=== PATIENT | male | born 1970 | race African-American/Black ===

== ENCOUNTER 2019-06-04 01:10 | Inpatient (IN) | payer OTHER ==
--- NOTE | 2019-06-04 01:57 | PDOC ---
Attending Attestation - Resident Resident Name: Nika Mccartney - ED Attending Attestation I have performed the following: I have examined & evaluated the patient, The case was reviewed & discussed with the resident, I agree w/resident's findings & plan - HPI HPI: 06/04/19 04:07 see resident hpi - Physicial Exam PE: 06/04/19 04:07 see resident exam - Medical Decision Making 06/04/19 04:07 49-year-old male with admitted polysubstance abuse including cocaine prior to arrival with chest pain EKG shows J-point elevation Plan for cardiac enzymes, chest x-ray Ativan IV and observation admission for further evaluation
[2019-06-04] MEDS ORDERED: SODIUM CHLORIDE 0.9% 500 ML INFUS.BAG IV ONE (02:03)
--- NOTE | 2019-06-04 02:30 | PDOC ---
History of Present Illness - General Chief Complaint: Substance Abuse Stated Complaint: SUBSTANCE ABUSE Time Seen by Provider: 06/04/19 01:42 Past History - Past Medical History Allergies/Adverse Reactions: Allergies Allergy/AdvReac Type Severity Reaction Status Date / Time No Known Allergies Allergy Verified 06/04/19 01:35 - Psycho Social/Smoking Cessation Hx Smoking History: Unknown if ever smoked Hx Alcohol Use: Yes Drug/Substance Use Hx: Yes *Physical Exam - Vital Signs Last Vital Signs Temp Pulse Resp BP Pulse Ox 98.5 F 89 20 150/78 98 06/04/19 01:33 06/04/19 01:33 06/04/19 01:33 06/04/19 01:33 06/04/19 01:33 ED Treatment Course - LABORATORY CBC & Chemistry Diagram: 06/04/19 03:20 06/04/19 03:20 - ADDITIONAL ORDERS Additional order review: Laboratory Results 06/04/19 02:20 POC Glucometer 74 06/04/19 02:20 POC Glucometer 74 - RADIOLOGY Radiology Studies Ordered: Category Date Time Status HEAD CT WITHOUT CONTRAST [CT] Stat CT Scan 06/04/19 02:06 Ordered CHEST X-RAY PORTABLE* [RAD] Stat Radiology 06/04/19 02:03 Ordered Medical Decision Making - Medical Decision Making 06/04/19 03:01 HPI: 49yo M reported hx of polysubstance abuse, seizures on Depakote, ACS/IN, HTN, DM , 2 strokes with residual L-sided weakness, and spinal problems BIBEMS found on side of road with CP s/p cocaine, heroin, and alcohol use. Pt states he was left for by prostitute and found on side of road by ambulance. States he does a bundle (12 bags a day) of heroin snorting and shooting, a lot of cocaine daily, and drinks 2 fifths of liquor and 36 cans of beer daily. States he passed out and has passed out a bunch the past 2 days. Endorses syncope, dizziness, chest pain, chronic L-sided weakness and numbness 2/2 strokes, and hematuria. States he wants help to calm down and to detox. Denies fever, chills , headache, new numbness/tingling, new weakness, vision changes, shortness of breath, cough, palpitations, leg swelling, abdominal pain, blood in stool, diarrhea, constipation, nausea, vomiting, dysuria. States he has HIV and wants to be tested again. ROS: Constitutional: Negative for chills, fever. HENT: Negative for sore throat, rhinorrhea, congestion. Eyes: Negative for visual disturbance. Respiratory: Negative for shortness of breath, cough, and wheezing. Cardiovascular: Positive for chest pain. Negative for palpitations, and leg swelling. Gastrointestinal: Negative for abdominal pain, blood in stool, constipation, diarrhea, nausea, and vomiting. Genitourinary: Positive for hematuria. Negative for dysuria and flank pain. Musculoskeletal: Negative for myalgias, back pain, and neck pain. Skin: Negative for rash. 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: Positive for syncope, dizziness, L-sided weakness, L-sided numbness. Negative for headaches. Psychiatric/Behavioral: Positive for polysubstance abuse and agitation. PE: Gen: Alert, NAD, comfortable-appearing, unkempt, agitated HEENT: PERRL, unable to assess EOMI, MMM, NCAT. No conjunctival pallor. +b/l conjunctival injection. Sclera are non-icteric. Poor dentition. CV: Regular rate and rhythm. No murmurs, rubs, or gallops. PULM: No resp distress. CTAB, no wheezes, rales, or rhonchi. ABD: soft, NT/ND, no rebound tenderness or guarding, no CVA tenderness. BACK: No TTP of c/t/l-spine. No step-offs or deformities. MSK: No bony deformities. 2+ pulses in all extremities. NEURO: AAOx3. PERRL. No gross CN deficits-unable to assess fully due to refusal to follow commands. Strength and sensation grossly intact throughout, moving all extremities freely, but when tried to assess strength, pt will not move LUE or LLE. EXTREMITIES: No cyanosis. No clubbing. No edema. No calf tenderness. +thickened yellow toenails. PSYCH: Agitated, repeatedly asking for someone to help him. SKIN: Warm and dry. Normal capillary refill. No rashes. No jaundice. MDM: 49yo M reported hx of polysubstance abuse, seizures on Depakote, ACS/IN, HTN, DM , 2 strokes with residual L-sided weakness, and spinal problems BIBEMS found on side of road with chest pain and syncope s/p cocaine, heroin, and alcohol use. Hemodynamically stable, afebrile. CP and cocaine use concerning for ACS/IN. Also consider pulmonary etiologies - CXR. Lack of back pain, tearing nature of chest pain, pulse discrepancies in arms, or hemodynamic instability makes dissection of low concern - no further testing indicated at this time. Also consider infectious etiologies, anemia, or metabolic derangements. -EKG -CBC, CMP, Cardiac profile, Coags, Mg, Phos, Depakote level, UDS, UA/UC, HIV -CXR, CTH -1L NS -Ativan -Dispo: adm obs tele for ACS/syncope r/o Labs reviewed. Of note, CK 836, CK-MB 4.9, Alc 148.5 EKG reviewed: NSR, 77bpm, normal axis, no TWIs, J-point elevations present CXR: no acute pathology 06/04/19 05:01 Pt sleeping comfortably. 06/04/19 06:02 MBMD sent for admission 06/04/19 07:32 CTH: no evidence of acute pathology. L zygomatic arch comminuted fx without significant soft tissue swelling likely chronic in nature. Chronic right nasal bone fx. Signed out to Dr Lozada. Pending urine and admission. Discharge - Discharge Information Problems reviewed: Yes Clinical Impression/Diagnosis: Syncope and collapse, Chest pain, Heroin abuse, Alcohol abuse, Cocaine abuse Condition: Fair - Admission Yes - Follow up/Referral - Patient Discharge Instructions - Post Discharge Activity
[2019-06-04] MEDS ORDERED: LORazepam 2 MG/ML SDV VIAL ONE (03:00)
[2019-06-04 03:50] LABS: BASO % 1.5 % (0-2.0); EOS % 2.9 % (0-4.5); HEMATOCRIT 37.1 % (35.4-49); HEMOGLOBIN 12.7 GM/dL (11.7-16.9); LYMPH % 49.9 % (8-40); MCH 32.1 pg (25.7-33.7); MCHC 34.3 g/dl (32.0-35.9); MEAN CELL VOLUME 93.6 fl (80-96); MEAN PLT VOLUME 7.8 fl (7.5-11.1); MONO % 7.7 % (3.8-10.2); PLATELET COUNT 247 K/MM3 (134-434); RBC 3.96 M/mm3 (4.00-5.60); RDW 14.4 % (11.9-15.9); WHITE BLOOD COUNT 5.1 K/mm3 (4.0-10.0)
[2019-06-04 04:06] LABS: INR 1.02 (0.83-1.09)
[2019-06-04 04:19] LABS: ALBUMIN 3.5 g/dl (3.4-5.0); BILIRUBIN,TOTAL 0.4 mg/dL (0.2-1); BLOOD UREA NITROGEN 9.2 mg/dL (7-18); CALCIUM 8.2 mg/dL (8.5-10.1); CREATININE 0.7 mg/dL (0.55-1.3); MAGNESIUM 2.1 mg/dL (1.8-2.4); PHOSPHOROUS 3.7 mg/dL (2.5-4.9); POTASSIUM 3.6 mmol/L (3.5-5.1)
--- NOTE | 2019-06-04 07:36 | PDOC ---
*Physical Exam - Vital Signs Last Vital Signs Temp Pulse Resp BP Pulse Ox 98.5 F 89 20 150/78 98 06/04/19 01:33 06/04/19 01:33 06/04/19 01:33 06/04/19 01:33 06/04/19 01:33 - Physical Exam General Appearance: Yes: Nourished, Appropriately Dressed, Other (resting comfortably, asleep). No: Apparent Distress Respiratory/Chest: positive: Lungs Clear, Normal Breath Sounds. negative: Respiratory Distress Cardiovascular: positive: Regular Rhythm, Regular Rate. negative: Murmur ED Treatment Course - LABORATORY CBC & Chemistry Diagram: 06/04/19 03:20 06/04/19 03:20 - ADDITIONAL ORDERS Additional order review: Laboratory Results 06/04/19 06/04/19 06/04/19 03:23 03:20 03:20 PT with INR 12.00 INR 1.02 PTT (Actin FS) 28.0 Sodium Potassium Chloride Carbon Dioxide Anion Gap BUN Creatinine Est GFR (CKD-EPI)AfAm Est GFR (CKD-EPI)NonAf POC Glucometer Random Glucose Calcium Phosphorus Cancelled Magnesium Total Bilirubin AST ALT Alkaline Phosphatase Creatine Kinase Creatine Kinase Index CK-MB (CK-2) Troponin I Total Protein Albumin Lipase Alcohol, Quantitative 06/04/19 06/04/19 06/04/19 03:20 03:20 02:20 PT with INR INR PTT (Actin FS) Sodium 141 Potassium 3.6 Chloride 103 Carbon Dioxide 29 Anion Gap 10 BUN 9.2 Creatinine 0.7 Est GFR (CKD-EPI)AfAm 126.64 Est GFR (CKD-EPI)NonAf 109.27 POC Glucometer 74 Random Glucose 82 Calcium 8.2 L Phosphorus 3.7 Magnesium 2.1 Total Bilirubin 0.4 AST 37 ALT 37 Alkaline Phosphatase 98 Creatine Kinase 836 H Creatine Kinase Index 0.5 CK-MB (CK-2) 4.9 H Troponin I < 0.02 Total Protein 7.0 Albumin 3.5 Lipase 122 Alcohol, Quantitative 148.5 H 06/04/19 06/04/19 03:20 02:20 RBC 3.96 L MCV 93.6 MCHC 34.3 RDW 14.4 MPV 7.8 Neutrophils % 38.0 L Lymphocytes % 49.9 H Monocytes % 7.7 Eosinophils % 2.9 Basophils % 1.5 POC Glucometer 74 - Medications Given in the ED: ED Medications Discontinued Medications Generic Name Dose Route Start Last Admin Trade Name Guille PRN Reason Stop Dose Admin Lorazepam 1 mg 06/04/19 02:40 06/04/19 03:03 Ativan Injection - IVPUSH 06/04/19 02:41 1 mg ONCE ONE Administration Sodium Chloride 1,000 ml 06/04/19 02:03 06/04/19 02:58 Normal Saline - IV 06/04/19 02:04 1,000 ml ONCE ONE Administration Medical Decision Making - Medical Decision Making 06/04/19 07:32 Signed out to me by Dr. Mccartney. Here for syncope and chest pain workup, plan to be admitted for tele/obs for cardiac syncope eval. Poor historian, self-reported history of stroke. Pending CT head and urine for UA/UC/Utox. Pending callback for admission. ECG shows NSR with HR 77, qTC 463. [X] CT head [] UA/UC/Utox [X] admit tele 06/04/19 08:25 CT head shows no infarct; chronic right nasal bone fracture, left zygomatic arch comminuted fracture without soft tissue swelling, chronic in nature. Patient admitted to tele under Dr. Clarke. Patient resting comfortably in bed in no acute distress, heart/lung exam normal. Discharge - Discharge Information Problems reviewed: Yes Clinical Impression/Diagnosis: Syncope and collapse, Chest pain, Heroin abuse, Alcohol abuse, Cocaine abuse Condition: Fair - Follow up/Referral - Patient Discharge Instructions - Post Discharge Activity
--- NOTE | 2019-06-04 07:56 | PN ---
Teaching Attending Note Name of Resident: Lety Maldonado ATTENDING PHYSICIAN STATEMENT I saw and evaluated the patient. I reviewed the resident's note and discussed the case with the resident. I agree with the resident's findings and plan as documented. SUBJECTIVE: Patient is a 49 y/o male with a history of polysubstance abuse, seizures, DC ( 2016), stroke, DM, and HTN who presents for HAVING A chest pain.Patient reports he drinks every day and does drugs including heroin and cocain. He injects himself with drugs. Patient reports he has chest pain, abdominal pain, and leg pain. Patient is Noncompliant with his medications. Patient reports having seizures but has not taken his meds. OBJECTIVE: Vital Signs Temperature 98.8 F 06/04/19 07:41 Pulse Rate 88 06/04/19 07:41 Respiratory Rate 18 06/04/19 07:41 Blood Pressure 106/73 06/04/19 07:41 O2 Sat by Pulse Oximetry (%) 98 06/04/19 07:41 GENERAL: The patient is awake, alert, and fully oriented, in no acute distress. HEAD: Normal with no signs of trauma. EYES: PERRL, extraocular movements intact, sclera anicteric, conjunctiva clear. ENT: Ears normal, oropharynx clear without exudates, moist mucous membranes. NECK: Trachea midline, full range of motion, supple. LUNGS: Breath sounds equal, clear to auscultation bilaterally, no wheezes, no crackles, no accessory muscle use. HEART: Regular rate and rhythm, S1, S2 without murmur, rub or gallop. ABDOMEN: Soft, nontender, nondistended, normoactive bowel sounds, no guarding, no rebound, no hepatosplenomegaly, no masses. EXTREMITIES: 2+ pulses, warm, well-perfused, no edema. NEUROLOGICAL: Cranial nerves II through XII grossly intact. Normal speech, gait not observed. PSYCH: Normal mood, normal affect. SKIN: Warm, dry, normal turgor, no rashes or lesions noted CBCD WBC 5.1 K/mm3 (4.0-10.0) 06/04/19 03:20 RBC 3.96 M/mm3 (4.00-5.60) L 06/04/19 03:20 Hgb 12.7 GM/dL (11.7-16.9) 06/04/19 03:20 Hct 37.1 % (35.4-49) 06/04/19 03:20 MCV 93.6 fl (80-96) 06/04/19 03:20 MCHC 34.3 g/dl (32.0-35.9) 06/04/19 03:20 RDW 14.4 % (11.9-15.9) 06/04/19 03:20 Plt Count 247 K/MM3 (134-434) 06/04/19 03:20 MPV 7.8 fl (7.5-11.1) 06/04/19 03:20 CMP Sodium 141 mmol/L (136-145) 06/04/19 03:20 Potassium 3.6 mmol/L (3.5-5.1) 06/04/19 03:20 Chloride 103 mmol/L (98-107) 06/04/19 03:20 Carbon Dioxide 29 mmol/L (21-32) 06/04/19 03:20 Anion Gap 10 MMOL/L (8-16) 06/04/19 03:20 BUN 9.2 mg/dL (7-18) 06/04/19 03:20 Creatinine 0.7 mg/dL (0.55-1.3) 06/04/19 03:20 Random Glucose 82 mg/dL (74-106) 06/04/19 03:20 Calcium 8.2 mg/dL (8.5-10.1) L 06/04/19 03:20 Total Bilirubin 0.4 mg/dL (0.2-1) 06/04/19 03:20 AST 37 U/L (15-37) 06/04/19 03:20 ALT 37 U/L (13-61) 06/04/19 03:20 Alkaline Phosphatase 98 U/L (45-117) 06/04/19 03:20 Total Protein 7.0 g/dl (6.4-8.2) 06/04/19 03:20 Albumin 3.5 g/dl (3.4-5.0) 06/04/19 03:20 CARDIAC ENZYMES Creatine Kinase 836 U/L (26-308) H 06/04/19 03:20 Troponin I < 0.02 ng/ml (0.00-0.05) 06/04/19 03:20 Laboratory Tests 06/04/19 06/04/19 06/04/19 03:20 03:20 03:20 Creatine Kinase 836 H Alcohol, Quantitative 148.5 H HIV 1&2 Antibody Screen Negative HIV P24 Ant[address] Of the head: No infarct; chronic right nasal bone fracture, left zygomatic arch comminuted fracture without soft tissue swelling, chronic in nature. CXR: negative. ASSESSMENT AND PLAN: Patient is a 49 y/o male with PMHx of polysubstance abuse(heroin,cocain, IVDA , alcohol) seizures, DC ( 2016), stroke, DM, and HTN who presents for HAVING A chest pain. #Acute chest pain with hx of CAD r/o ACS: Ce q6x3 , ekg, cardio consult, lipid panel, aspirin 81mg daily. #Syncope most likely due to alcohol since level was 148 on admission #Alcohol dependency /alcohol withdrawel will start him on Librium protocol, detox consult #Polysubstance dependency detox consult. #Hx of seizure most likely due to alcohol, will restart his keppra since was not taking it at home. DVT Px: SCDs
[2019-06-04] MEDS ORDERED: chlordiazePOXIDE 5 MG CAPSULE PO PRN (08:23)
[2019-06-04] MEDS ORDERED: chlordiazePOXIDE HCL 25 MG CAPSULE PO ONE (08:24)
[2019-06-04] MEDS ORDERED: THIAMINE HCL 100 MG TABLET (FP) PO ONE (08:25)
[2019-06-04] MEDS ORDERED: FOLIC ACID 1 MG TABLET (FP) PO ONE (08:26)
[2019-06-04] MEDS ORDERED: SODIUM CHLORIDE 1,000 ML IV SCH (08:30)
[2019-06-04] MEDS ORDERED: ACETAMINOPHEN 325 MG TABLET (FP) PO PRN (08:35)
--- NOTE | 2019-06-04 08:43 | HP ---
CHIEF COMPLAINT: chest pain PCP: none HISTORY OF PRESENT ILLNESS: Patient is a 49 y/o male with a history of polysubstance abuse, seizures, LA ( most recently in 2016), stroke, DM, and HTN who presents for chest pain. Patient is very uninterested in providing a detailed history. reports he was on the ground last night and found by bystanders who left him "to ". Patient reports he drinks every day and does drugs including heroin and cocain. He injects himself with drugs. Patient reports he has chest pain, abdominal pain, and leg pain. Patient is supposed to be taking medications but has not been taking them, does not know for how long. Patient has had withdrawal seizures in the past. ER course was notable for: (1) (2) (3) Recent Travel: PAST MEDICAL HISTORY: polysubstance abuse, seizures, LA ( most recently in 2015) , stroke, DM, and HTN PAST SURGICAL HISTORY: Social History: Smoking: Alcohol: "36 beers a day, two jugs of alcohol" Drugs: heroin and cocaine Allergies No Known Allergies Allergy (Verified 06/04/19 01:35) HOME MEDICATIONS: REVIEW OF SYSTEMS refused to answer complains of : pain in chest, abdomen, and legs PHYSICAL EXAMINATION Vital Signs - 24 hr 06/04/19 06/04/19 01:33 07:41 Temperature 98.5 F 98.8 F Pulse Rate 89 Pulse Rate [ 88 Left Radial] Respiratory 20 18 Rate Blood Pressure 150/78 Blood Pressure 106/73 [Left Arm] O2 Sat by Pulse 98 98 Oximetry (%) GENERAL: Awake,and fully oriented, in no acute distress. Smells of alcohol, sleepy HEAD: Normal with no signs of trauma. EYES: extraocular movements intact, EARS, NOSE, THROAT: poor dentition LUNGS: Breath sounds equal, clear to auscultation bilaterally. No wheezes, and no crackles. No accessory muscle use. HEART: Regular rate and rhythm, normal S1 and S2 without murmur, rub or gallop. ABDOMEN: Soft, nontender, not distended, normoactive bowel sounds, no guarding, no rebound, no masses. LOWER EXTREMITIES: 2+ pulses, warm, well-perfused. No peripheral edema. NEUROLOGICAL: refused SKIN: Warm, dry, normal turgor, no rashes or lesions noted, normal capillary refill. CBC, BMP 06/04/19 03:20 06/04/19 03:20 ASSESSMENT/PLAN: Patient is a 49 y/o male with a history of polysubstance abuse, seizures, LA ( most recently in 2016), stroke, DM, and HTN who presents for chest pain and alcohol intoxication. #Chest pain - r/o ACS, per patient with history of LA's, not been taking his medication - likely 2/2 to polysubstance abuse - trop negative x1, f/u second two - EKG with slight widened QRS 88, QTC 463, slight upslope in st - monitor on tele with cardiac monitoring - f/u with Cardio - f/u ECHO #alcohol intoxication - began librium protocol - continue thiamine and folate - seizure precuations - monitor CIWA, patient initially refused to answer questions #polysubstance abuse - f/u Utox - per patient injects heroin, and uses cocaine - HIV test negative #DM - BGM - SS - f/u A1C #hx CAD - continue ASA 81 daily #hx seizures - per patient he has not been taking his depakote, will restart 500 BID - will monitor off depakote, ativan for any seizures - patient on seizure precautions #HLD - CPK elevated - once CPK trends down will start lipitor - f/u lipid #DVT ppx - heparin TID FEN - low sodium, diabetic diet - NS @ 100, f/u echo and reduce fluids if necessary Dispo: monitor on tele Visit type - Emergency Visit Emergency Visit: No - New Patient This patient is new to me today: Yes Date on this admission: 06/07/19 - Critical Care Critical Care patient: No ATTENDING PHYSICIAN STATEMENT I saw and evaluated the patient. I reviewed the resident's note and discussed the case with the resident. I agree with the resident's findings and plan as documented. SUBJECTIVE: OBJECTIVE: ASSESSMENT AND PLAN:
[2019-06-04] MEDS ORDERED: chlordiazePOXIDE HCL 25 MG CAPSULE ONE ×3 (09:11→20:30)
[2019-06-04] MEDS ORDERED: PT OWN MED DRAWER 7, Y5N ONE (09:11)
[2019-06-04 09:49] LABS: CHOLESTEROL 162 mg/dL (50-200); HDL CHOLESTEROL 80 mg/dL (40-60); LDL CHOLESTEROL (ONLY SJRH) 46 mg/dL (5-100); TRIGLYCERIDES 219 mg/dL (0-150)
[2019-06-04] MEDS: DIVALPROEX SODIUM 500 MG TABLET E.C. PO SCH ×2 (11:00→21:21)
[2019-06-04] MEDS: FOLIC ACID 1 MG TABLET (FP) PO SCH (11:00)
[2019-06-04] MEDS: ASPIRIN COATED 81 MG TABLET.EC PO SCH (11:00)
[2019-06-04] MEDS: HEPARIN NA (PORCINE) 5,000 UNITS/ML 1ML VIAL SQ SCH ×3 (11:00→21:21)
[2019-06-04] MEDS: THIAMINE HCL 100 MG TABLET (FP) PO SCH (11:00)
[2019-06-04] MEDS ORDERED: ASPIRIN COATED 81 MG TABLET.EC ONE (11:09)
[2019-06-04] MEDS ORDERED: FOLIC ACID 1 MG TABLET (FP) ONE (11:10)
[2019-06-04] MEDS ORDERED: HEPARIN NA (PORCINE) 5,000 UNITS/ML 1ML VIAL ONE ×3 (11:10→20:30)
[2019-06-04] MEDS: INSULIN SLIDING SCALE (NOVOLOG) 1 VIAL SQ SCH ×3 (11:36→21:21)
--- NOTE | 2019-06-04 12:05 | EKG ---
Test Reason : Blood Pressure : / mmHG Vent. Rate : 077 BPM Atrial Rate : 077 BPM P-R Int : 128 ms QRS Dur : 088 ms QT Int : 410 ms P-R-T Axes : 059 022 030 degrees QTc Int : 463 ms NORMAL SINUS RHYTHM NORMAL ECG NO PREVIOUS ECGS AVAILABLE Confirmed by Jose Hollingsworth ([id number]) on 06/04/2019 12:05:04 PM Referred By: Confirmed By:Jose Hollingsworth
--- NOTE | 2019-06-04 12:19 | EKG ---
Test Reason : Blood Pressure : / mmHG Vent. Rate : 089 BPM Atrial Rate : 089 BPM P-R Int : 122 ms QRS Dur : 076 ms QT Int : 376 ms P-R-T Axes : 062 030 038 degrees QTc Int : 457 ms NORMAL SINUS RHYTHM NORMAL ECG WHEN COMPARED WITH ECG OF 04-JUN-2019 02:14, NO SIGNIFICANT CHANGE WAS FOUND Confirmed by Jose Hollingsworth ([id number]) on 06/04/2019 12:19:04 PM Referred By: Confirmed By:Jose Hollingsworth
--- NOTE | 2019-06-04 12:35 | ECHO ---
Version: 1 Name: JAVI MCCOY Exam: Adult Echocardiogram Study Date: 06/04/2019, 11:48 AM Age: 49 Years MMode/2D Measurements & Calculations IVSd: 0.91 cm LVIDs: 2.41 cm LVIDd: 4.7 cm LVPWd: 0.98 cm LAV (MOD-bp): 49.2 ml LVOT diam: 1.96 cm Ao root diam: 3.0 cm LA dimension: 3.1 cm Doppler Measurements & Calculations MV E max memo: 74.2 cm/sec Med E/e': 6.2 MV A max memo: 85.4 cm/sec Med Peak E' Memo: 12.0 cm/sec MV E/A: 0.87 Lat E/e': 5.2 Lat Peak E' Memo: 14.4 cm/sec Ao max P.0 mmHg Ao V2 max: 165.6 cm/sec TR max memo: 226.2 cm/sec TR max P.7 mmHg Left Ventricle The left ventricular size, thickness and function are normal. Ejection Fraction = 65%. The transmitr al spectral Doppler flow pattern is suggestive of impaired LV relaxation. Right Ventricle The right ventricle is normal in size and function. Atria Normal left and right atrial size and function. Mitral Valve The mitral valve is normal in structure and function. There is mild mitral regurgitation. Tricuspid Valve The tricuspid valve is normal in structure and function. There is Trace to mild tricuspid regurgitat ion. Aortic Valve The aortic valve is normal in structure and function. Pulmonic Valve The pulmonic valve is normal in structure and function. Trace to mild pulmonic valvular regurgitatio n. Great Vessels The aortic root is normal size. Normal aortic arch, descending and ascending aorta. Pericardium/Pleura There is no pericardial effusion. Summary Statements The left ventricular size, thickness and function are normal Ejection Fraction = 65%. The transmitral spectral Doppler flow pattern is suggestive of impaired LV relaxation. The right ventricle is normal in size and function. Normal left and right atrial size and function. The mitral valve is normal in structure and function. There is mild mitral regurgitation. The tricuspid valve is normal in structure and function. There is Trace to mild tricuspid regurgitation. The aortic valve is normal in structure and function. The pulmonic valve is normal in structure and function. Trace to mild pulmonic valvular regurgitation. The aortic root is normal size. Normal aortic arch, descending and ascending aorta There is no pericardial effusion. Richmond Wheeler 06/04/2019, 11:34 AM Ordering Physician: SEBASTIAN VILLAFUERTE Performed By: Cristy Leonard
[2019-06-04] MEDS: chlordiazePOXIDE HCL 25 MG CAPSULE PO SCH ×2 (13:50→21:20)
--- NOTE | 2019-06-04 15:59 | CON.CARD ---
Consult Consult Specialty:: cardiology Reason for Consultation:: chest pain; cocaine/alcholol abuse - History of Present Illness Chief Complaint: Pt arousable; says he was using cocaine just prior to admission , and drinking alcohol; denies chest pain presently, but c/o "pain all over, and neurotin isn't helping"; requests "something stonger, like Percoset". History of Present Illness: 49-year-old male with admitted polysubstance abuse, ?CVA (pt says he has left- sided weakness from it; hx father who of CVA age 61); HTN, diastolic CHF, including cocaine and alcohol prior to arrival with chest pain EKG shows J-point elevation 1st TNI < 0.02; chest x-ray without acute pathology. Ativan IV and observation admission for further evaluation - History Source History Provided By: Patient, Medical Record Limitations to Obtaining History: Poor Historian - Past Medical History Cardio/Vascular: Yes: HTN Psych: Yes: Other (addictions/substance abuse) - Alcohol/Substance Use Hx Alcohol Use: Yes - Smoking History Smoking history: Unknown if ever smoked Home Medications - Allergies Allergies/Adverse Reactions: Allergies Allergy/AdvReac Type Severity Reaction Status Date / Time No Known Allergies Allergy Verified 06/04/19 01:35 - Home Medications Home Medications: Ambulatory Orders Aspirin 81 mg PO DAILY 06/04/19 Atorvastatin Ca [Lipitor] 40 mg PO DAILY 06/04/19 Baclofen 10 mg PO DAILY 06/04/19 Divalproex [Depakote -] 500 mg PO DAILY 06/04/19 Emtricitabine/Tenofovir (Tdf) [Truvada 200 mg-300 mg Tablet] 1 tab PO DAILY 04/15 Rivaroxaban [Xarelto -] 20 mg PO DAILY 06/04/19 Family Medical History Family Hx Cardiac Disorders: Father ( of CVA age 61) - Risk Factors Known Risk Factors: Yes: Age, Family History, Gender, Hypertension, Physical Inactivity, Prior LA /Emb Stroke, Race Vital Signs: Vital Signs Temperature 98.8 F 06/04/19 07:41 Pulse Rate 88 06/04/19 07:41 Respiratory Rate 18 06/04/19 07:41 Blood Pressure 106/73 06/04/19 07:41 O2 Sat by Pulse Oximetry (%) 98 06/04/19 07:41 Constitutional: Yes: Mild Distress Eyes: Yes: WNL Neck: Yes: WNL Respiratory: Yes: Regular Gastrointestinal: Yes: Soft Renal/: Yes: Anuria Heart Sounds: Yes: S1, S2, S4 Murmur: Yes: Systolic Murmur, Grade 1 Musculoskeletal: Yes: Muscle Weakness (left sided mild-moderately decreased ROM , flotation tender) Extremities: Yes: WNL Edema: No Peripheral Pulses WNL: Yes Integumentary: Yes: WNL 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: Yes: Alert, Oriented, Weakness Psychiatric: Yes: Alert, Other - Other Data Labs, Other Data: CBC, BMP 06/04/19 03:20 06/04/19 03:20 INR, PTT INR 1.02 (0.83-1.09) 06/04/19 03:23 Troponin, BNP 06/04/19 06/04/19 03:20 08:29 Troponin I < 0.02 < 0.02 Troponin, BNP 06/04/19 06/04/19 03:20 08:29 Troponin I < 0.02 < 0.02 Abnormal Lab Results 06/04/19 06/04/19 06/04/19 03:20 03:20 03:20 RBC 3.96 L Neutrophils % 38.0 L Lymphocytes % 49.9 H Calcium 8.2 L Creatine Kinase 836 H CK-MB (CK-2) 4.9 H Triglycerides HDL Cholesterol Valproic Acid Alcohol, Quantitative 148.5 H 06/04/19 06/04/19 08:29 13:50 RBC Neutrophils % Lymphocytes % Calcium Creatine Kinase CK-MB (CK-2) Triglycerides 219 H HDL Cholesterol 80 H Valproic Acid < 3.0 L Alcohol, Quantitative Echo: Report Reviewed (normal LVEF) Ejection Fraction %: LVEF > or = 40 % Imaging - Results Chest X-ray: Image Reviewed (no acute pathology) EKG: Image Reviewed (normal study) Problem List - Problems (1) HTN (hypertension) Assessment/Plan: start lisinopril (HTN; DM). Code(s): I10 - ESSENTIAL (PRIMARY) HYPERTENSION (2) Diastolic CHF Code(s): I50.30 - UNSPECIFIED DIASTOLIC (CONGESTIVE) HEART FAILURE (3) Alcohol abuse Assessment/Plan: detox protocol Code(s): F10.10 - ALCOHOL ABUSE, UNCOMPLICATED (4) Chest pain Assessment/Plan: TNI < 0.02; f/u serially. EKG: normal study. ECHO: normal LVEF. Stress test when stable. Code(s): R07.9 - CHEST PAIN, UNSPECIFIED (5) Cocaine abuse Assessment/Plan: Avoid beta blockers. Drug rehabilitation. Code(s): F14.10 - COCAINE ABUSE, UNCOMPLICATED (6) Diabetes Code(s): E11.9 - TYPE 2 DIABETES MELLITUS WITHOUT COMPLICATIONS (7) CVA (cerebral vascular accident) Assessment/Plan: Pt gives hx of CVA-->left-sided weakness; f/u w/u. Code(s): I63.9 - CEREBRAL INFARCTION, UNSPECIFIED (8) [place] cardiac risk 10-20% in next 10 years Assessment/Plan: Atypical chest pain. F/u TNI, EKG, telemetry. Consider stress test when stable. Code(s): Z91.89 - OTH PERSONAL RISK FACTORS, NOT ELSEWHERE CLASSIFIED
[2019-06-04] MEDS ORDERED: DIVALPROEX SODIUM 500 MG TABLET E.C. ONE (20:30)
[2019-06-05 01:44] VITALS: BMI 19.3
[2019-06-05] MEDS: HEPARIN NA (PORCINE) 5,000 UNITS/ML 1ML VIAL SQ SCH (05:46)
[2019-06-05] MEDS: chlordiazePOXIDE HCL 25 MG CAPSULE PO SCH (05:46)
[2019-06-05] MEDS: INSULIN SLIDING SCALE (NOVOLOG) 1 VIAL SQ SCH ×2 (06:25→14:24)
[2019-06-05 07:24] LABS: METHADONE, UR NEGATIVE ng/ml (CUTOFF=300); OPIATES, URI NEGATIVE ng/ml (CUTOFF=300); PHENCYCLIDINE,URINE NEGATIVE ng/ml (CUTOFF=25); URINE AMPHETAMINES NEGATIVE ng/ml (CUTOFF=500); URINE BARBITURATES NEGATIVE ng/ml (CUTOFF=200)
[2019-06-05 07:26] LABS: COCAINE, UR POSITIVE ng/ml (CUTOFF=300); URINE BENZODIAZEPINES POSITIVE ng/ml (CUTOFF=200)
[2019-06-05 08:00] LABS: PH,URINE 6.5 (5.0-8.0); URINE APPEARANCE CLEAR; URINE BILIRUBIN NEGATIVE (NEGATIVE); URINE COLOR YELLOW; URINE GLUCOSE (UA) NEGATIVE (NEGATIVE); URINE KETONE NEGATIVE (NEGATIVE); URINE LEUK ESTERASE NEGATIVE (NEGATIVE); URINE NITRITE NEGATIVE (NEGATIVE); URINE PROTEIN NEGATIVE (NEGATIVE); URINE UROBILINOGEN 0.2 mg/dL (0.2-1.0)
[2019-06-05] MEDS: THIAMINE HCL 100 MG TABLET (FP) PO SCH (09:35)
[2019-06-05] MEDS: ASPIRIN COATED 81 MG TABLET.EC PO SCH (09:35)
[2019-06-05] MEDS: FOLIC ACID 1 MG TABLET (FP) PO SCH (09:35)
[2019-06-05 09:56] VITALS: BP 155/91; PULSE 92; TEMP 98.3
[2019-06-05] MEDS ORDERED: LISINOPRIL 5 MG TABLET (FP) PO SCH (10:00)
[2019-06-05] MEDS: DIVALPROEX SODIUM 500 MG TABLET E.C. PO SCH (10:23)
[2019-06-05] MEDS ORDERED: PT OWN MED DRAWER 7, Y5N ONE (11:08)
--- NOTE | 2019-06-05 11:09 | PN ---
Progress Note, Physician History of Present Illness: 49-year-old male with admitted polysubstance abuse, ?CVA (pt says he has left- sided weakness from it; hx father who of CVA age 61); HTN, diastolic CHF, including cocaine and alcohol prior to arrival with chest pain EKG shows J-point elevation 1st TNI < 0.02; chest x-ray without acute pathology. Ativan IV and observation admission for further evaluation - Current Medication List Current Medications: Active Medications Acetaminophen (Tylenol -) 650 mg PO Q6H PRN PRN Reason: Fever Or Pain Aspirin (Ecotrin -) 81 mg PO DAILY [facility] Last Admin: 06/05/19 09:35 Dose: 81 mg Chlordiazepoxide HCl (Librium -) 10 mg PO Q12H PRN PRN Reason: Signs/symptoms of Withdrawal Stop: 06/07/19 23:59 Chlordiazepoxide HCl (Librium -) 10 mg PO Q8H PRN PRN Reason: Signs/symptoms of Withdrawal Stop: 06/06/19 23:59 Chlordiazepoxide HCl (Librium -) 25 mg PO Q8H [facility] Stop: 06/05/19 21:01 Last Admin: 06/05/19 05:46 Dose: 25 mg Chlordiazepoxide HCl (Librium -) 15 mg PO Q8H [facility] Stop: 06/06/19 21:01 Chlordiazepoxide HCl (Librium -) 10 mg PO Q8H [facility] Stop: 06/07/19 21:01 Chlordiazepoxide HCl (Librium -) 10 mg PO ONCE ONE Stop: 06/08/19 05:01 Divalproex Sodium (Depakote -) 500 mg PO BID [facility] Last Admin: 06/04/19 21:21 Dose: Not Given Folic Acid (Folic Acid -) 1 mg PO DAILY [facility] Last Admin: 06/05/19 09:35 Dose: 1 mg Heparin Sodium (Porcine) (Heparin -) 5,000 unit SQ TID [facility] Last Admin: 06/05/19 05:46 Dose: 5,000 unit Sodium Chloride (Normal Saline -) 1,000 mls @ 75 mls/hr IV ASDIR [facility] Last Admin: 06/04/19 09:19 Dose: 75 mls/hr Insulin Aspart (Novolog Vial Sliding Scale -) 1 vial SQ ACHS [facility]; Protocol Last Admin: 06/05/19 06:25 Dose: Not Given Lisinopril (Prinivil) 2.5 mg PO DAILY [facility] Thiamine HCl (Vitamin B1 -) 100 mg PO DAILY [facility] Last Admin: 06/05/19 09:35 Dose: 100 mg - Objective Vital Signs: Vital Signs Temperature 98.3 F 06/05/19 09:00 Pulse Rate 92 H 06/05/19 09:00 Respiratory Rate 18 06/05/19 09:00 Blood Pressure 155/91 06/05/19 09:00 O2 Sat by Pulse Oximetry (%) 99 06/05/19 09:00 Eyes: Yes: WNL, Conjunctiva Clear, EOM Intact HENT: Yes: WNL, Atraumatic, Normocephalic Neck: Yes: WNL, Supple, Trachea Midline Cardiovascular: Yes: WNL, Regular Rate and Rhythm Respiratory: Yes: WNL, Regular, CTA Bilaterally Gastrointestinal: Yes: WNL, Normal Bowel Sounds Genitourinary: Yes: WNL Musculoskeletal: Yes: WNL Extremities: Yes: WNL Edema: No Integumentary: Yes: WNL 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: Yes: WNL, Alert, Oriented ...Motor Strength: WNL Psychiatric: Yes: WNL Labs: CBC, BMP 06/04/19 03:20 06/04/19 03:20 INR, PTT INR 1.02 (0.83-1.09) 06/04/19 03:23 Assessment/Plan - Problems (1) HTN (hypertension) Assessment/Plan: start lisinopril (HTN; DM). Code(s): I10 - ESSENTIAL (PRIMARY) HYPERTENSION (2) Diastolic CHF Code(s): I50.30 - UNSPECIFIED DIASTOLIC (CONGESTIVE) HEART FAILURE (3) Alcohol abuse Assessment/Plan: detox protocol Code(s): F10.10 - ALCOHOL ABUSE, UNCOMPLICATED (4) Chest pain Assessment/Plan: TNI < 0.02; f/u serially. EKG: normal study. ECHO: normal LVEF. Stress test when stable. Code(s): R07.9 - CHEST PAIN, UNSPECIFIED (5) Cocaine abuse Assessment/Plan: Avoid beta blockers. Drug rehabilitation. Code(s): F14.10 - COCAINE ABUSE, UNCOMPLICATED (6) Diabetes Code(s): E11.9 - TYPE 2 DIABETES MELLITUS WITHOUT COMPLICATIONS (7) CVA (cerebral vascular accident) Assessment/Plan: Pt gives hx of CVA-->left-sided weakness; f/u w/u. Code(s): I63.9 - CEREBRAL INFARCTION, UNSPECIFIED (8) [place] cardiac risk 10-20% in next 10 years Assessment/Plan: Atypical chest pain. F/u TNI, EKG, telemetry. Consider stress test when stable. Code(s): Z91.89 - OTH PERSONAL RISK FACTORS, NOT ELSEWHERE CLASSIFIED
--- NOTE | 2019-06-05 16:41 | DS ---
Physical Exam: SUBJECTIVE: Patient seen and examined. Pt continues to endorse pain in chest, back and arms. However patient refusing assessment, blood draws, and fingerstick because he wants to sleep. OBJECTIVE: Vital Signs Period Temp Pulse Resp BP Sys/Maurice Pulse Ox Last 24 Hr 98.3 F-98.6 F 71-92 18-18 107-155/64-91 99-99 PHYSICAL EXAM pt refuses physical exam. LABS Laboratory Results - last 24 hr 06/04/19 06/04/19 06/05/19 17:22 21:16 06:00 POC Glucometer 97 89 Urine Color Urine Appearance Urine pH Ur Specific Jean Urine Protein Urine Glucose (UA) Urine Ketones Urine Blood Urine Nitrite Urine Bilirubin Urine Urobilinogen Ur Leukocyte Esterase Opiates Screen Negative Methadone Screen Negative Barbiturate Screen Negative Phencyclidine Screen Negative Ur Amphetamines Screen Negative MDMA (Ecstasy) Screen Negative Benzodiazepines Screen Positive A* Cocaine Screen Positive A* U Marijuana (THC) Screen Negative 06/05/19 06:00 POC Glucometer Urine Color Yellow Urine Appearance Clear Urine pH 6.5 Ur Specific Jean 1.013 Urine Protein Negative Urine Glucose (UA) Negative Urine Ketones Negative Urine Blood Negative Urine Nitrite Negative Urine Bilirubin Negative Urine Urobilinogen 0.2 Ur Leukocyte Esterase Negative Opiates Screen Methadone Screen Barbiturate Screen Phencyclidine Screen Ur Amphetamines Screen MDMA (Ecstasy) Screen Benzodiazepines Screen Cocaine Screen U Marijuana (THC) Screen HOSPITAL COURSE: Date of Admission:06/04/19 Patient is a 49 y/o male with a history of polysubstance abuse, seizures, [place] ( most recently in 2016), stroke, DM, and HTN who presents for chest pain and alcohol intoxication. Pt was admitted to r/o ACS. trops neg x2, EKG with slight widened QRS 88, QTC 463, slight upslope in some leads. echo only significant for impaired LV relaxation with EF 65%. Per cardio, pt to follow o/p for stress test. Head CT and Chest XRay negative for acute pathology. Pt was actively withdrawing and agreed to get D/C to [facility] to continue inpatient detox. Depakote 500 BID restarted as pt has history seizure disorder and stopped taking his meds a long time ago. pt advised to avoid BBs due to cocain use Hx. Date of Discharge: 06/05/19 Minutes to complete discharge: 35 Discharge Summary Problems reviewed: Yes Reason For Visit: SYNCOPE AND COLLAPSE,CHEST PAIN Condition: Fair - Instructions Diet, Activity, Other Instructions: You came in for chest pain. We pilar blood labs were negative, we did an ekg which was also negative. We did an ultrasound of your heard which showed nothing immediately concerning. We found you in withdrawal and we started you on medications to treat you. We are transferring you to [facility] where you can complete detox. Please follow up with Cardiology Dr Dalal for a stress test. Medications: Please continue all your medications as previously prescribes Please stop using cocaine, heroin and alcohol as they can worsen your heart function. Please return to the ED if you begin to experience worsening chest pain, shortness of breath, bleeding, or any other concerning symptoms/ Referrals: Andres Dalal MD [Staff Physician] - 1 Week Sherry Gonzalez DO [Staff Physician] - 1 Week Disposition: [facility] - Home Medications Comprehensive Discharge Medication List: Ambulatory Orders Aspirin 81 mg PO DAILY 06/04/19 Atorvastatin Ca [Lipitor] 40 mg PO DAILY 06/04/19 Baclofen 10 mg PO DAILY 06/04/19 Divalproex [Depakote -] 500 mg PO DAILY 06/04/19 Emtricitabine/Tenofovir (Tdf) [Truvada 200 mg-300 mg Tablet] 1 tab PO DAILY 04/15 Rivaroxaban [Xarelto -] 20 mg PO DAILY 06/04/19 Problem List - Problems (1) Alcohol abuse Code(s): F10.10 - ALCOHOL ABUSE, UNCOMPLICATED (2) CVA (cerebral vascular accident) Code(s): I63.9 - CEREBRAL INFARCTION, UNSPECIFIED (3) Chest pain Code(s): R07.9 - CHEST PAIN, UNSPECIFIED (4) Cocaine abuse Code(s): F14.10 - COCAINE ABUSE, UNCOMPLICATED (5) Diabetes Code(s): E11.9 - TYPE 2 DIABETES MELLITUS WITHOUT COMPLICATIONS (6) Diastolic CHF Code(s): I50.30 - UNSPECIFIED DIASTOLIC (CONGESTIVE) HEART FAILURE (7) [place] cardiac risk 10-20% in next 10 years Code(s): Z91.89 - OTH PERSONAL RISK FACTORS, NOT ELSEWHERE CLASSIFIED (8) HTN (hypertension) Code(s): I10 - ESSENTIAL (PRIMARY) HYPERTENSION (9) Heroin abuse Code(s): F11.10 - OPIOID ABUSE, UNCOMPLICATED (10) Syncope and collapse Code(s): R55 - SYNCOPE AND COLLAPSE This patient is new to me today: Yes Date on this admission: 06/05/19 Emergency Visit: Yes ED Registration Date: 06/04/19 Care time: The patient presented to the Emergency Department on the above date and was hospitalized for further evaluation of their emergent condition. Critical Care patient: No - Discharge Referral Referred to [facility] Med P.C.: No ATTENDING PHYSICIAN STATEMENT I saw and evaluated the patient. I reviewed the resident's note and discussed the case with the resident. I agree with the resident's findings and plan as documented. SUBJECTIVE: OBJECTIVE: ASSESSMENT AND PLAN:
--- NOTE | 2019-06-05 16:44 | PN ---
Teaching Attending Note Name of Resident: Hayley Sharpe ATTENDING PHYSICIAN STATEMENT I saw and evaluated the patient. I reviewed the resident's note and discussed the case with the resident. I agree with the resident's findings and plan as documented. SUBJECTIVE: Patient was sleeping deeply when we entered his room, no new complaint. Denies having any chest pain or palpitations. OBJECTIVE: Vital Signs Temperature 98.3 F 06/05/19 09:00 Pulse Rate 92 H 06/05/19 09:00 Respiratory Rate 18 06/05/19 09:00 Blood Pressure 155/91 06/05/19 09:00 O2 Sat by Pulse Oximetry (%) 99 06/05/19 09:00 GENERAL: The patient is awake, alert, and fully oriented, in no acute distress. HEAD: Normal with no signs of trauma. EYES: PERRL, extraocular movements intact, sclera anicteric, conjunctiva clear. ENT: Ears normal, oropharynx clear without exudates, moist mucous membranes. NECK: Trachea midline, full range of motion, supple. LUNGS: Breath sounds equal, clear to auscultation bilaterally, no wheezes, no crackles, no accessory muscle use. HEART: Regular rate and rhythm, S1, S2 without murmur, rub or gallop. ABDOMEN: Soft, nontender, nondistended, normoactive bowel sounds, no guarding, no rebound, no hepatosplenomegaly, no masses. EXTREMITIES: 2+ pulses, warm, well-perfused, no edema. NEUROLOGICAL: Cranial nerves II through XII grossly intact. Normal speech, gait not observed. PSYCH: Normal mood, normal affect. SKIN: Warm, dry, normal turgor, no rashes or lesions noted CBCD WBC 5.1 K/mm3 (4.0-10.0) 06/04/19 03:20 RBC 3.96 M/mm3 (4.00-5.60) L 06/04/19 03:20 Hgb 12.7 GM/dL (11.7-16.9) 06/04/19 03:20 Hct 37.1 % (35.4-49) 06/04/19 03:20 MCV 93.6 fl (80-96) 06/04/19 03:20 MCHC 34.3 g/dl (32.0-35.9) 06/04/19 03:20 RDW 14.4 % (11.9-15.9) 06/04/19 03:20 Plt Count 247 K/MM3 (134-434) 06/04/19 03:20 MPV 7.8 fl (7.5-11.1) 06/04/19 03:20 CMP Sodium 141 mmol/L (136-145) 06/04/19 03:20 Potassium 3.6 mmol/L (3.5-5.1) 06/04/19 03:20 Chloride 103 mmol/L (98-107) 06/04/19 03:20 Carbon Dioxide 29 mmol/L (21-32) 06/04/19 03:20 Anion Gap 10 MMOL/L (8-16) 06/04/19 03:20 BUN 9.2 mg/dL (7-18) 06/04/19 03:20 Creatinine 0.7 mg/dL (0.55-1.3) 06/04/19 03:20 Random Glucose 82 mg/dL (74-106) 06/04/19 03:20 Calcium 8.2 mg/dL (8.5-10.1) L 06/04/19 03:20 Total Bilirubin 0.4 mg/dL (0.2-1) 06/04/19 03:20 AST 37 U/L (15-37) 06/04/19 03:20 ALT 37 U/L (13-61) 06/04/19 03:20 Alkaline Phosphatase 98 U/L (45-117) 06/04/19 03:20 Total Protein 7.0 g/dl (6.4-8.2) 06/04/19 03:20 Albumin 3.5 g/dl (3.4-5.0) 06/04/19 03:20 CARDIAC ENZYMES Creatine Kinase 836 U/L (26-308) H 06/04/19 03:20 Troponin I < 0.02 ng/ml (0.00-0.05) 06/04/19 08:29 Home Medications Medication Instructions Recorded Aspirin 81 mg PO DAILY 06/04/19 Atorvastatin Ca [Lipitor] 40 mg PO DAILY 06/04/19 Baclofen 10 mg PO DAILY 06/04/19 Divalproex [Depakote -] 500 mg PO DAILY 06/04/19 Emtricitabine/Tenofovir (Tdf) 1 tab PO DAILY 06/04/19 [Truvada 200 mg-300 mg Tablet] Rivaroxaban [Xarelto -] 20 mg PO DAILY 06/04/19 Laboratory Tests 06/04/19 06/04/19 06/04/19 03:20 03:20 03:20 Creatine Kinase 836 H Troponin I < 0.02 Triglycerides Cholesterol Total LDL Cholesterol HDL Cholesterol Alcohol, Quantitative 148.5 H HIV 1&2 Antibody Screen Negative HIV P24 Antigen Negative 06/04/19 08:29 Creatine Kinase Troponin I < 0.02 Triglycerides 219 H Cholesterol 162 Total LDL Cholesterol 46 HDL Cholesterol 80 H Alcohol, Quantitative HIV 1&2 Antibody Screen HIV P24 [address] Of the head: No infarct; chronic right nasal bone fracture, left zygomatic arch comminuted fracture without soft tissue swelling, chronic in nature. CXR: negative. ASSESSMENT AND PLAN: Patient is a 49 y/o male with PMHx of polysubstance abuse (heroin,cocain, IVDA , alcohol) seizures, [place] ( 2016), stroke, DM, and HTN who presents for HAVING A chest pain. #Acute chest pain improved with negative troponins x 2 sets . normal ekg, will discharge the patient back to detox at [facility]. cardiology follow up upon discharge and stress test as an outpatient with dr shah. #Syncope most likely due to alcohol since level was 148 on admission #Alcohol dependency /alcohol withdrawel continue Librium protocol in the detox center. #Polysubstance dependency continue detox #Hx of seizure most likely due to alcohol, will restart his keppra since was not taking it at home. discharge the patient back to rehab.
[2019-06-06] MEDS ORDERED: chlordiazePOXIDE 5 MG CAPSULE PO SCH (05:00)
[2019-06-07] MEDS ORDERED: chlordiazePOXIDE 5 MG CAPSULE PO PRN
[2019-06-07] MEDS ORDERED: chlordiazePOXIDE 5 MG CAPSULE PO SCH (05:00)
[2019-06-08] MEDS ORDERED: chlordiazePOXIDE 5 MG CAPSULE PO ONE (05:00)
== END 2019-06-05 12:20 | DRG 773 ==
LOC: JER 01:10 → JERBED 06:12 → J4W 06-05 01:29
PROVIDERS: ADMIT Internal Medicine; ATTEND Internal Medicine
PROC: HZ2ZZZZ Detoxification Services for Substance Abuse Treatment (ICD-10-PCS; principal; 2019-06-04)
DX: F10.239 Alcohol dependence with withdrawal, unspecified (principal); R07.89 Other chest pain; R55 Syncope and collapse; F14.10 Cocaine abuse, uncomplicated; Y90.6 Blood alcohol level of 120-199 mg/100 ml; F11.20 Opioid dependence, uncomplicated; E78.5 Hyperlipidemia, unspecified; F10.229 Alcohol dependence with intoxication, unspecified; E11.9 Type 2 diabetes mellitus without complications; G40.909 Epilepsy, unspecified, not intractable, without status epilepticus; I11.0 Hypertensive heart disease with heart failure; I25.2 Old myocardial infarction; G81.94 Hemiplegia, unspecified affecting left nondominant side; I50.30 Unspecified diastolic (congestive) heart failure; Z91.89 Other specified personal risk factors, not elsewhere classified
CPT/HCPCS: 36415; 70450-TC; 71045-TC-FY; 80053; 80061; 80164; 80307; 81003; 82550; 82553; 82962; 83690; 83721; 83735; 84100; 84443; 84484; 85025; 85610; 85730; 86850; 86900; 86901; 87086; 87389; 93005; 93010; 93306-TC; 99285-25; J1644; J7030

== ENCOUNTER 2019-06-07 02:03 | Emergency (ER) | payer OTHER ==
--- NOTE | 2019-06-07 02:21 | PDOC ---
History of Present Illness - General Stated Complaint: SUBSTANCE ABUSE - History of Present Illness Initial Comments: The pt is a 49M w/ a history of polysubtance abuse, [place], CVA, HTN who presents for evaluation. Pt admits to EtOH, heroin, and cocaine use tonight. He also reports falling this evening. He endorses right facial pain after his fall. He denies other injury/trauma. History limited at this time 06/07/19 02:41 Past History - Past Medical History Allergies/Adverse Reactions: Allergies Allergy/AdvReac Type Severity Reaction Status Date / Time Fish Containing Products Allergy Mild Verified 06/07/19 10:00 tomato Allergy Verified 06/07/19 10:00 Home Medications: Ambulatory Orders Aspirin 81 mg PO DAILY 06/04/19 Atorvastatin Ca [Lipitor] 40 mg PO DAILY 06/04/19 Emtricitabine/Tenofovir (Tdf) [Truvada 200 mg-300 mg Tablet] 1 tab PO DAILY 04/15 Rivaroxaban [Xarelto -] 20 mg PO DAILY 06/04/19 Gabapentin [Neurontin] 600 mg PO PRN PRN 06/07/19 Cardiac Disorders: (ME 2015) COPD: No CHF: Yes HTN: Yes Seizures: Yes - Immunization History Td Vaccination: Yes TDAP Vaccination: Yes Immunization Up to Date: Yes - Psycho Social/Smoking Cessation Hx Smoking History: Unknown if ever smoked Have you smoked in the past 12 months: No Hx Alcohol Use: Yes Drug/Substance Use Hx: Yes Substance Use Type: Alcohol, Cocaine, Heroin Hx Substance Use Treatment: No Review of Systems - Review of Systems Able to Perform ROS?: No (2/2 medical condition) *Physical Exam - Physical Exam Comments: GENERAL: Tired, arousable to voice, follows commands HEAD: R zygomatic ecchymosis w/o underlying bony crepitus EYES: PERRLA, EOMI, sclera anicteric, conjunctiva clear ENT: Hearing grossly normal, nares patent, oropharynx clear without exudates. Moist mucosa LUNGS: No distress, speaks in full sentences, clear to auscultation bilaterally HEART: Regular rate and rhythm, normal S1 and S2, no murmurs appreciated, peripheral pulses normal and equal bilaterally ABDOMEN: Soft, nontender, normoactive bowel sounds. No guarding, no rebound EXTREMITIES: Normal inspection, Normal range of motion, no edema. No clubbing or cyanosis NEUROLOGICAL: Cranial nerves II through XII grossly intact. Slurred speech, no focal sensorimotor deficits SKIN: Warm, Dry 06/07/19 02:45 ED Treatment Course - LABORATORY CBC & Chemistry Diagram: 06/07/19 03:10 06/07/19 03:10 Medical Decision Making - Medical Decision Making The pt is a 49M w/ a history of polysubtance abuse, [place], CVA who presents for evaluation of intoxication of cocaine, heroin, and EtOH ED Course CMP, CBC, EtOH CT head and facial bones AKI Meneses 06/07/19 02:46 No leukocytosis No anemia Lytes wnl No JOI LFTs mildly elevated, likely 2/[address] pending 06/07/19 05:26 Pt is more alert at this time. Continues to complain of facial pain Pt not tachycardic, normotensive, not anxious at this time CT pending 06/07/19 06:07 Pt signed out to day team Discharge - Discharge Information Problems reviewed: Yes Clinical Impression/Diagnosis: Heroin abuse, Alcohol abuse, Cocaine abuse Condition: Stable Disposition: TRANSFER ACUTE CARE/OTHER HOSP - Follow up/Referral - Patient Discharge Instructions - Post Discharge Activity
--- NOTE | 2019-06-07 02:28 | PDOC ---
Attending Attestation - Resident Resident Name: Natasha Peñaan - ED Attending Attestation I have performed the following: I have examined & evaluated the patient, The case was reviewed & discussed with the resident, I agree w/resident's findings & plan, Exceptions are as noted - HPI HPI: 06/07/19 02:38 Mr. Mancini is a 49 y/o male with a history of polysubstance abuse, seizures, [place] ( most recently in 2015), stroke, DM, and HTN who presents to the ER from [facility] where he was attempting to get detox however there were no beds The patient was discharged from our facility yesterday with a plan to go to [facility] No current chest pain Pt states that he has used a bundle of heroin, cocaine, and alcohol (upwards of 36 beers) Pt reports that he "fell out" and struck his face today PAST MEDICAL HISTORY: polysubstance abuse, seizures, [place] ( most recently in 2015) , stroke, DM, and HTN - Physicial Exam PE: 06/07/19 02:44 GENERAL: The patient is in no acute distress, tearful, arousable to verbal stimulation. ENT: Ears normal, nares patent, oropharynx clear without exudates. Moist mucous membranes. NECK: Normal range of motion, supple, no midline tenderness to palpation LUNGS: Breath sounds equal, clear to auscultation bilaterally. No wheezes, and no crackles. HEART:Regular rate and rhythm, normal S1 and S2 without murmur, rub or gallop. ABDOMEN: Soft, nontender, normoactive bowel sounds. EXTREMITIES: Normal range of motion, no edema. NEUROLOGICAL: Cranial nerves II through XII grossly intact. slurred speech. No focal neurological deficits. SKIN: Warm, Dry, normal turgor, no rashes or lesions noted. Right great toe warts 06/07/19 02:44 - Medical Decision Making 06/07/19 02:45 49 yo M presenting for detox No beds available Will plan to do Basic labs Observe for signs of withdrawal Transfer to [facility] in the morning 06/07/19 04:47 Laboratory Tests 06/07/19 06/07/19 06/07/19 03:10 03:10 03:10 WBC 5.8 Hgb 13.0 Hct 38.6 Plt Count 253 BUN 11.4 Creatinine 0.8 Alcohol, Quantitative 151.[address] pending Signed out to AM team
[2019-06-07] MEDS ORDERED: ONDANSETRON 4 MG/2 ML VIAL IVPUSH ONE (02:38)
[2019-06-07] MEDS ORDERED: SODIUM CHLORIDE 0.9% 500 ML INFUS.BAG IV ONE (02:38)
[2019-06-07 02:44] VITALS: BMI 23.0
[2019-06-07] MEDS ORDERED: ONDANSETRON 4 MG/2 ML VIAL ONE (03:07)
[2019-06-07 03:19] LABS: BASO % 1.1 % (0-2.0); EOS % 2.5 % (0-4.5); HEMATOCRIT 38.6 % (35.4-49); LYMPH % 43.4 % (8-40); MCH 31.6 pg (25.7-33.7); MCHC 33.8 g/dl (32.0-35.9); MEAN CELL VOLUME 93.7 fl (80-96); MEAN PLT VOLUME 8.3 fl (7.5-11.1); MONO % 7.3 % (3.8-10.2); NEUT % 45.7 % (42.8-82.8); PLATELET COUNT 253 K/MM3 (134-434); RBC 4.12 M/mm3 (4.00-5.60); RDW 14.4 % (11.9-15.9); WHITE BLOOD COUNT 5.8 K/mm3 (4.0-10.0)
[2019-06-07 03:52] LABS: ALBUMIN 3.7 g/dl (3.4-5.0); ALK PHOS 120 U/L (45-117); ANION GAP 11 MMOL/L (8-16); BILIRUBIN,TOTAL 0.3 mg/dL (0.2-1); BLOOD UREA NITROGEN 11.4 mg/dL (7-18); CALCIUM 8.8 mg/dL (8.5-10.1); CHLORIDE 107 mmol/L (98-107); CO2 26 mmol/L (21-32); CREATININE 0.8 mg/dL (0.55-1.3); GLUCOSE,RANDOM 103 mg/dL (74-106); SGOT/AST 51 U/L (15-37); SGPT/ALT 38 U/L (13-61); SODIUM 144 mmol/L (136-145); TOT PROT 7.7 g/dl (6.4-8.2)
[2019-06-07] MEDS ORDERED: chlordiazePOXIDE HCL 25 MG CAPSULE PO ONE (06:08)
[2019-06-07] MEDS ORDERED: ACETAMINOPHEN 1000 MG/100 ML VIAL (NON FORMULARY) IVPB ONE (06:12)
[2019-06-07] MEDS ORDERED: chlordiazePOXIDE HCL 25 MG CAPSULE ONE (06:45)
[2019-06-07] MEDS ORDERED: ACETAMINOPHEN INJECTION 100 ML IVPB ONE (06:46)
--- NOTE | 2019-06-07 07:25 | PDOC ---
*Physical Exam - Vital Signs Last Vital Signs Temp Pulse Resp BP Pulse Ox 98.1 F 88 15 109/74 96 06/07/19 07:10 06/07/19 07:10 06/07/19 07:10 06/07/19 07:10 06/07/19 07:10 - Physical Exam Comments: 06/07/19 08:10 Pt alert, oriented, asking for food and water AFVSS, no psychomotor agitation evident RRR, nl s1/s2, no murmurs appreciated CTABL, normal WOB, no wheezes / rales / rhonchi Soft, non-tender, non-distended ED Treatment Course - LABORATORY CBC & Chemistry Diagram: 06/07/19 03:10 06/07/19 03:10 - ADDITIONAL ORDERS Additional order review: Laboratory Results 06/07/19 06/07/19 03:10 03:10 Sodium 144 Potassium 4.0 Chloride 107 Carbon Dioxide 26 Anion Gap 11 BUN 11.4 Creatinine 0.8 Est GFR (CKD-EPI)AfAm 119.88 Est GFR (CKD-EPI)NonAf 103.43 Random Glucose 103 Calcium 8.8 Total Bilirubin 0.3 AST 51 H ALT 38 Alkaline Phosphatase 120 H Creatine Kinase 798 H Creatine Kinase Index 0.6 CK-MB (CK-2) 5.0 H Troponin I < 0.02 Total Protein 7.7 Albumin 3.7 Alcohol, Quantitative 151.9 H 06/07/19 03:10 RBC 4.12 MCV 93.7 MCHC 33.8 RDW 14.4 MPV 8.3 Neutrophils % 45.7 D Lymphocytes % 43.4 H Monocytes % 7.3 Eosinophils % 2.5 Basophils % 1.1 - Medications Given in the ED: ED Medications Discontinued Medications Generic Name Dose Route Start Last Admin Trade Name Freq PRN Reason Stop Dose Admin Acetaminophen 1,000 mg 06/07/19 06:12 06/07/19 07:07 Ofirmev Injection - IVPB 06/07/19 06:13 1,000 mg ONCE ONE Administration Chlordiazepoxide HCl 50 mg 06/07/19 06:08 06/07/19 07:07 Librium - PO 06/07/19 06:09 50 mg ONCE ONE Administration Ondansetron HCl 4 mg 06/07/19 02:38 06/07/19 03:13 Zofran Injection IVPUSH 06/07/19 02:39 4 mg ONCE ONE Administration Sodium Chloride 1,000 ml 06/07/19 02:38 06/07/19 03:12 Normal Saline - IV 06/07/19 02:39 1,000 ml ONCE ONE Administration Medical Decision Making - Medical Decision Making 06/07/19 07:[address] Peña Pt pending head CT read, plan for transfer to [facility] once awake if still amenable 06/07/19 07:54 Pt evaluated at bedside, resting comfortably, asks for water- provided with a small cup CT results back with no signs of acute facial bone fractures, ICH, or c-spine fractures Pt still requesting detox HR upper 90s, will continue to monitor for signs of withdrawal Dispo: [facility] 06/07/19 08:29 Patient requests to "stay for a day" here. Advised that he needs to be managed at [facility]. Vitals, labs, EKG findings reviewed with him. Discharged to [facility]. [facility] called at 8:15 for signout. Discharge - Discharge Information Problems reviewed: Yes Clinical Impression/Diagnosis: Heroin abuse, Alcohol abuse, Cocaine abuse Condition: Stable Disposition: TRANSFER ACUTE CARE/OTHER HOSP - Admission No - Follow up/Referral - Patient Discharge Instructions - Post Discharge Activity - Transfer to Acute Care Facility Transfer Comment: 06/07/19 08:24 Patient sent to [facility], signout given at 8:15AM
[2019-06-07 08:15] VITALS: BP 121/76; PULSE 102; TEMP 98
== END 2019-06-07 08:46 | disposition short-term general hospital (02) ==
LOC: JER 02:03
PROC: 3E033GC Introduction of Other Therapeutic Substance into Peripheral Vein, Percutaneous Approach (ICD-10-PCS; principal; 2019-06-07)
PROC: 3E033NZ Introduction of Analgesics, Hypnotics, Sedatives into Peripheral Vein, Percutaneous Approach (ICD-10-PCS; 2019-06-07)
DX: S09.93XA Unspecified injury of face, initial encounter (principal); F10.10 Alcohol abuse, uncomplicated; F11.10 Opioid abuse, uncomplicated; F14.10 Cocaine abuse, uncomplicated; Y90.6 Blood alcohol level of 120-199 mg/100 ml; W19.XXXA Unspecified fall, initial encounter; Y93.89 Activity, other specified; Y92.89 Other specified places as the place of occurrence of the external cause; Y99.8 Other external cause status; I25.10 Atherosclerotic heart disease of native coronary artery without angina pectoris; I11.0 Hypertensive heart disease with heart failure; I50.9 Heart failure, unspecified; I25.2 Old myocardial infarction; E11.9 Type 2 diabetes mellitus without complications; G40.909 Epilepsy, unspecified, not intractable, without status epilepticus; Z86.73 Personal history of transient ischemic attack (TIA), and cerebral infarction without residual deficits; Z79.01 Long term (current) use of anticoagulants; Z79.82 Long term (current) use of aspirin; Z91.013 Allergy to seafood
CPT/HCPCS: 36415; 70450-TC; 70486-TC; 80053; 80307; 82550; 82553; 84484; 85025; 96374; 96375; 99283-25; J0131

== ENCOUNTER 2019-06-07 09:42 | Inpatient (IN) | payer OTHER ==
[2019-06-07 10:14] VITALS: BMI 21.1
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
[2019-06-07] MEDS ORDERED: MAGNESIUM CITRATE 300 ML BOTTLE PO PRN (12:02)
[2019-06-07] MEDS ORDERED: IBUPROFEN 400 MG TABLET (FP) PO PRN (12:02)
[2019-06-07] MEDS ORDERED: MENTHOL/PHENOL 1 EACH UD MM PRN (12:02)
[2019-06-07] MEDS ORDERED: MAGNESIUM HYDROX 2400MG/30ML ORAL SUSPENSION 30 ML CUP PO PRN (12:02)
[2019-06-07] MEDS ORDERED: BISMUTH SUBSALICYLATE 524 MG/30 ML UD PO PRN (12:02)
[2019-06-07] MEDS ORDERED: hydrOXYzine PAMOATE 25 MG CAPSULE (FP) PO PRN (12:02)
[2019-06-07] MEDS ORDERED: METHOCARBAMOL 500 MG TABLET PO PRN (12:02)
[2019-06-07] MEDS ORDERED: MELATONIN 5 MG TABLETS PO PRN (12:02)
[2019-06-07] MEDS ORDERED: MAG HYDROX/AL HYDROX/SIMETH 30 ML UNIT-DOSE CUP PO PRN (12:02)
[2019-06-07] MEDS ORDERED: chlordiazePOXIDE HCL 25 MG CAPSULE PO PRN (12:02)
[2019-06-07] MEDS ORDERED: ACETAMINOPHEN 325 MG TABLET (FP) PO PRN ×2 (12:02)
[2019-06-07] MEDS: chlordiazePOXIDE HCL 25 MG CAPSULE PO SCH ×2 (18:08→22:41)
[2019-06-07] MEDS: THIAMINE HCL 100 MG TABLET (FP) PO SCH (22:41)
[2019-06-08] MEDS: chlordiazePOXIDE HCL 25 MG CAPSULE PO SCH ×4 (06:59→22:32)
[2019-06-08 09:26] VITALS: BP 121/74; PULSE 87; TEMP 97.7
--- NOTE | 2019-06-08 09:59 | PN ---
S CIWA - CIWA Score Nausea/Vomitin-No Nausea/No Vomiting Muscle Tremors: 2 Anxiety: 3 Agitation: 2 Paroxysmal Sweats: 3 Orientation: 0-Oriented Tacttile Disturbances: 1-Very Mild Itch/Numbness Auditory Disturbances: 0-None Visual Disturbances: 0-None Headache: 2-Mild CIWA-Ar Total Score: 13 BHS Progress Note (SOAP) Subjective: c/o sweats, anxiety, agitation, shakes, and headache. Objective: 06/08/19 09:56 Vital Signs 06/08/19 06/08/19 06/08/19 03:30 06:33 09:25 Temperature 97 F L 97.7 F Pulse Rate 71 87 Respiratory 18 16 18 Rate Blood Pressure 114/72 121/74 Labs pending. Assessment: 06/08/19 09:57 AOX3, in no acute respiratory distress. Full ROM, ambulating in the unit with a cane. Withdrawal symptoms. Plan: Continue detox.
[2019-06-08] MEDS ORDERED: PRENATAL VITAMINS W/ FOLIC ACID TABLET (FP) PO SCH (10:00)
[2019-06-08] MEDS ORDERED: DIVALPROEX SODIUM 500 MG TABLET E.C. PO SCH (10:00)
[2019-06-08] MEDS ORDERED: EMTRICITABINE 200MG/TENOFOVIR 300MG PO SCH (10:00)
[2019-06-08] MEDS ORDERED: ASPIRIN 81 MG CHEWABLE TABLETS PO SCH (10:00)
[2019-06-08] MEDS ORDERED: ATORVASTATIN CA 40 MG TABLET (FP) PO SCH (22:00)
[2019-06-08] MEDS: THIAMINE HCL 100 MG TABLET (FP) PO SCH (22:32)
[2019-06-09] MEDS ORDERED: chlordiazePOXIDE HCL 25 MG CAPSULE PO SCH (05:00)
--- NOTE | 2019-06-09 12:01 | DS ---
[facility] Detox Discharge Summary Admission Date: 06/07/19 Discharge Date: 06/09/19 (Left AMA) - History Present History: Alcohol Dependence, Opioid Dependence Additional Comments: Pt left AMA. Pt did not complete his detox protocol. Pt states, "i have something important to take care of". An attempt to let pt stay and complete his detox protocol failed. Pt is encouraged to follow-up with [facility] outpatient program and also to follow-up with his pmd. Pt was adamant about the information given. Pt is alert and oriented x3 and in no respiratory distress. Pertinent Past History: H/O cva, seizures, HTN, alcohol, and heroin use disorder. - Physical Exam Results Vital Signs: Vital Signs Temperature 97.7 F 06/08/19 09:25 Pulse Rate 87 06/08/19 09:25 Respiratory Rate 18 06/09/19 09:16 Blood Pressure 121/74 06/08/19 09:25 O2 Sat by Pulse Oximetry (%) Vital Signs 06/09/19 06/09/19 06:13 09:16 Respiratory 18 18 Rate - Treatment Hospital Course: Detox Protocol Followed - Medication Discharge Medications: Ambulatory Orders Aspirin 81 mg PO DAILY 06/04/19 Atorvastatin Ca [Lipitor] 40 mg PO DAILY 06/04/19 Emtricitabine/Tenofovir (Tdf) [Truvada 200 mg-300 mg Tablet] 1 tab PO DAILY 04/15 Rivaroxaban [Xarelto -] 20 mg PO DAILY 06/04/19 Gabapentin [Neurontin] 600 mg PO PRN PRN 06/07/19 - Diagnosis (1) Alcohol abuse Status: Acute (2) CVA (cerebral vascular accident) Status: Acute (3) Cocaine abuse Status: Acute (4) HTN (hypertension) Status: Acute (5) Heroin abuse Status: Acute - AMA Did Patient Leave Against Medical Advice: Yes [facility] CIWA - CIWA Score Nausea/Vomitin-No Nausea/No Vomiting Muscle Tremors: 2 Anxiety: 3 Agitation: 2 Paroxysmal Sweats: 3 Orientation: 0-Oriented Tacttile Disturbances: 0-None Auditory Disturbances: 0-None Visual Disturbances: 0-None Headache: 0-None Present CIWA-Ar Total Score: 10
[2019-06-10] MEDS ORDERED: chlordiazePOXIDE HCL 10 MG CAPSULE PO PRN
[2019-06-10] MEDS ORDERED: chlordiazePOXIDE HCL 10 MG CAPSULE PO SCH (05:00)
[2019-06-11] MEDS ORDERED: chlordiazePOXIDE HCL 10 MG CAPSULE PO SCH (05:00)
[2019-06-12] MEDS ORDERED: chlordiazePOXIDE HCL 10 MG CAPSULE PO ONE (05:00)
== END 2019-06-09 10:57 | disposition left against medical advice (07) | DRG 770 ==
LOC: YASAS 09:42 → Y3N 12:14
PROVIDERS: ADMIT Allergy & Immunology; ATTEND Allergy & Immunology
PROC: HZ2ZZZZ Detoxification Services for Substance Abuse Treatment (ICD-10-PCS; principal; 2019-06-07)
DX: F10.230 Alcohol dependence with withdrawal, uncomplicated (principal); F10.221 Alcohol dependence with intoxication delirium; F14.20 Cocaine dependence, uncomplicated; F11.10 Opioid abuse, uncomplicated; I11.0 Hypertensive heart disease with heart failure; I25.10 Atherosclerotic heart disease of native coronary artery without angina pectoris; I25.2 Old myocardial infarction; I50.30 Unspecified diastolic (congestive) heart failure; I69.351 Hemiplegia and hemiparesis following cerebral infarction affecting right dominant side; G40.909 Epilepsy, unspecified, not intractable, without status epilepticus

== ENCOUNTER 2019-06-11 04:42 | Emergency (ER) | payer OTHER ==
--- NOTE | 2019-06-11 05:22 | PDOC ---
Attending Attestation - Resident Resident Name: Ede Lozada - ED Attending Attestation I have performed the following: I have examined & evaluated the patient, The case was reviewed & discussed with the resident, I agree w/resident's findings & plan - HPI HPI: 06/11/19 05:44 see resident hpi - Physicial Exam PE: 06/11/19 05:45 agree with resident exam - Medical Decision Making 06/11/19 05:45 49-year-old male with alcohol intoxication Plan for CT head, fingerstick Patient will be signed out to dayshift pending sobriety
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
[2019-06-11 06:00] VITALS: BMI 29.0
--- NOTE | 2019-06-11 08:23 | PDOC ---
*Physical Exam - Vital Signs Last Vital Signs Temp Pulse Resp BP Pulse Ox 97.4 F L 84 16 118/80 100 06/11/19 05:00 06/11/19 05:00 06/11/19 05:00 06/11/19 05:00 06/11/19 05:00 <Luis Tam - Last Filed: 06/11/19 09:29> - Vital Signs Last Vital Signs Temp Pulse Resp BP Pulse Ox 97.4 F L 84 16 118/80 100 06/11/19 05:00 06/11/19 05:00 06/11/19 05:00 06/11/19 05:00 06/11/19 05:00 <Sandro Emmanuel - Last Filed: 06/11/19 11:18> Heart Score/ECG Review #1 ECG reviewed & interpreted by me at: 09:27 General ECG Interpretation: Sinus Rhythm, Normal Rate (81), Normal Intervals ( qtc 457, LVH), No acute ischemic changes <Luis Tam - Last Filed: 06/11/19 09:29> - ECG Intrepretation Comment:: 06/11/19 10:07 - EKG shows high voltage in leads V4, V5, V6, otherwise normal, no ST elevations , TWI <Sandro Emmanuel - Last Filed: 06/11/19 11:18> ED Treatment Course - ADDITIONAL ORDERS Additional order review: Laboratory Results 06/11/19 05:45 POC Glucometer 89 06/11/19 05:45 POC Glucometer 89 <Luis Tam - Last Filed: 06/11/19 09:29> - ADDITIONAL ORDERS Additional order review: Laboratory Results 06/11/19 05:45 POC Glucometer 89 06/11/19 05:45 POC Glucometer 89 <Sandro Emmanuel - Last Filed: 06/11/19 11:18> Medical Decision Making - Medical Decision Making 06/11/19 07:22 - Sign out received from Dr. Lozada - Pt asleep 06/11/19 09:45 - No acute pathology and no interval changes noted on Head CT 06/11/19 10:06 - EKG shows high voltage in leads V4, V5, V6, otherwise normal 06/11/19 10:39 - Pt assessed, AOx3, no AMS - Will give Librium 50mg PO - D/C <Sandro Emmanuel - Last Filed: 06/11/19 11:18> Discharge <Luis Tam - Last Filed: 06/11/19 09:29> - Discharge Information Problems reviewed: Yes - Admission No <Sandro Emmanuel - Last Filed: 06/11/19 11:18> - Discharge Information Clinical Impression/Diagnosis: Lethargy Alcohol intoxication Qualifiers: Complication of substance-induced condition: uncomplicated Qualified Code(s): F10.920 - Alcohol use, unspecified with intoxication, uncomplicated - Follow up/Referral Referrals: ON STAFF,NOT [Primary Care Provider] - - Patient Discharge Instructions Additional Instructions: You came to the hospital because you were lethargic and intoxicated. While you were here, we did a scan of your head (CT scan), and your heart (EKG), which did not show any abnormalities. You received medicine to prevent seizures related to alcohol consumption. You do not require any treatment at this time, and are being discharged. Follow up: - Please make an appointment with your primary care physician within the next 1 week. - If you do not have a primary care physician, please make an appointment with Dr. Emmanuel at the [facility] clinic Additional Information: Please return to the ER if you experience any nausea, vomiting, visual disturbances, prolonged headaches, vomiting, diarrhea, fever, or any concerning symptoms. - Post Discharge Activity
[2019-06-11] MEDS ORDERED: chlordiazePOXIDE HCL 25 MG CAPSULE PO ONE (10:40)
[2019-06-11] MEDS ORDERED: chlordiazePOXIDE HCL 25 MG CAPSULE ONE (10:48)
[2019-06-11 11:27] VITALS: BP 120/86; PULSE 89; TEMP 98.2
--- NOTE | 2019-06-12 11:02 | EKG ---
Test Reason : Blood Pressure : / mmHG Vent. Rate : 081 BPM Atrial Rate : 081 BPM P-R Int : 128 ms QRS Dur : 078 ms QT Int : 394 ms P-R-T Axes : 075 037 042 degrees QTc Int : 457 ms NORMAL SINUS RHYTHM MODERATE VOLTAGE CRITERIA FOR LVH, MAY BE NORMAL VARIANT BORDERLINE ECG WHEN COMPARED WITH ECG OF 04-JUN-2019 09:06, NO SIGNIFICANT CHANGE WAS FOUND Confirmed by DAVID PHAM, EMMA ([id number]) on 06/12/2019 11:01:37 AM Referred By: Confirmed By:EMMA HERNANDEZ MD
== END 2019-06-11 11:28 | disposition home or self-care (01) ==
LOC: JER 04:42
DX: F10.120 Alcohol abuse with intoxication, uncomplicated (principal); I25.10 Atherosclerotic heart disease of native coronary artery without angina pectoris; I10 Essential (primary) hypertension; I25.2 Old myocardial infarction; R56.9 Unspecified convulsions; F19.10 Other psychoactive substance abuse, uncomplicated; Z86.73 Personal history of transient ischemic attack (TIA), and cerebral infarction without residual deficits; Z79.01 Long term (current) use of anticoagulants
CPT/HCPCS: 70450-TC; 82962; 93005; 93010; 99285-25

== ENCOUNTER 2020-10-13 18:13 | Inpatient (IN) | payer OTHER ==
[2020-10-13 18:47] VITALS: BMI 21.7
[2020-10-13] MEDS ORDERED: METHOCARBAMOL 500 MG TABLET PO PRN (21:42)
[2020-10-13] MEDS ORDERED: MENTHOL/PHENOL 1 EACH UD MM PRN (21:42)
[2020-10-13] MEDS ORDERED: NICOTINE POLACRILEX 2 MG GUM BUC PRN (21:42)
[2020-10-13] MEDS ORDERED: ACETAMINOPHEN 325 MG TABLET (FP) PO PRN ×2 (21:42)
[2020-10-13] MEDS ORDERED: ONDANSETRON *ODT* 4 MG TABLET SL PRN (21:42)
[2020-10-13] MEDS ORDERED: MAGNESIUM HYDROX 2400MG/30ML ORAL SUSPENSION 30 ML CUP PO PRN (21:42)
[2020-10-13] MEDS ORDERED: MAG HYDROX/AL HYDROX/SIMETH 30 ML UNIT-DOSE CUP PO PRN (21:42)
[2020-10-13] MEDS ORDERED: chlordiazePOXIDE HCL 25 MG CAPSULE PO PRN (21:42)
[2020-10-13] MEDS ORDERED: BISMUTH SUBSALICYLATE 524 MG/30 ML UD PO PRN (21:42)
[2020-10-13] MEDS ORDERED: MAGNESIUM CITRATE 300 ML BOTTLE PO PRN (21:42)
[2020-10-13] MEDS ORDERED: chlordiazePOXIDE HCL 25 MG CAPSULE ONE (23:04)
[2020-10-13] MEDS: MELATONIN 5 MG TABLETS PO SCH (23:05)
[2020-10-13] MEDS: THIAMINE HCL 100 MG TABLET (FP) PO SCH (23:05)
[2020-10-13] MEDS: chlordiazePOXIDE HCL 25 MG CAPSULE PO SCH (23:05)
[2020-10-14] MEDS ORDERED: IBUPROFEN 400 MG TABLET (FP) PO ONE ×2 (02:05→10:28)
[2020-10-14] MEDS: IBUPROFEN 400 MG TABLET (FP) PO PRN ×2 (02:10→10:38)
[2020-10-14] MEDS ORDERED: chlordiazePOXIDE HCL 25 MG CAPSULE ONE ×2 (05:11→10:30)
[2020-10-14] MEDS: chlordiazePOXIDE HCL 25 MG CAPSULE PO SCH ×4 (05:11→22:49)
[2020-10-14] MEDS ORDERED: NICOTINE 14 MG/24 HOURS TOPICAL PATCH TD ONE (10:30)
[2020-10-14] MEDS: NICOTINE 14 MG/24 HOURS TOPICAL PATCH TD SCH (10:35)
[2020-10-14] MEDS: PRENATAL VITAMINS W/ FOLIC ACID TABLET (FP) PO SCH (10:35)
[2020-10-14 13:43] LABS: HEMATOCRIT 30.9 % (35.4-49); HEMOGLOBIN 9.9 GM/dL (11.7-16.9); MCH 25.5 pg (25.7-33.7); MCHC 32.1 g/dl (32.0-35.9); MEAN CELL VOLUME 79.5 fl (80-96); MEAN PLT VOLUME 8.4 fl (7.5-11.1); PLATELET COUNT 264 K/MM3 (134-434); RBC 3.89 M/mm3 (4.00-5.60); RDW 17.9 % (11.9-15.9); WHITE BLOOD COUNT 5.8 K/mm3 (4.0-10.0)
[2020-10-14 13:48] LABS: POTASSIUM 3.7 mmol/L (3.5-5.1)
[2020-10-14 14:00] LABS: ALBUMIN 3.3 g/dl (3.4-5.0); BLOOD UREA NITROGEN 11.5 mg/dL (7-18); CALCIUM 9.2 mg/dL (8.5-10.1)
[2020-10-14 14:03] LABS: CREATININE 0.9 mg/dL (0.55-1.3)
[2020-10-14 14:04] LABS: BILIRUBIN,TOTAL 0.8 mg/dL (0.2-1)
[2020-10-14] MEDS: MELATONIN 5 MG TABLETS PO SCH (22:49)
[2020-10-14] MEDS: THIAMINE HCL 100 MG TABLET (FP) PO SCH (22:49)
[2020-10-15] MEDS: chlordiazePOXIDE HCL 25 MG CAPSULE PO SCH ×4 (06:20→22:53)
[2020-10-15] MEDS ORDERED: METHOCARBAMOL 750 MG TAB PO PRN (10:36)
[2020-10-15] MEDS: NICOTINE 14 MG/24 HOURS TOPICAL PATCH TD SCH (10:43)
[2020-10-15] MEDS: PRENATAL VITAMINS W/ FOLIC ACID TABLET (FP) PO SCH (10:45)
[2020-10-15] MEDS: ATORVASTATIN CA 40 MG TABLET (FP) PO SCH (10:45)
[2020-10-15] MEDS: ASPIRIN 81 MG CHEWABLE TABLETS PO SCH (10:45)
[2020-10-15] MEDS: RIVAROXABAN 20 MG TABLET PO SCH (11:51)
[2020-10-15] MEDS: LIDOCAINE 5% TOPICAL PATCH TP SCH (11:55)
[2020-10-15] MEDS ORDERED: LIDOCAINE PATCH REMOVAL MC SCH (22:00)
[2020-10-15] MEDS: THIAMINE HCL 100 MG TABLET (FP) PO SCH (22:52)
[2020-10-15] MEDS: MELATONIN 5 MG TABLETS PO SCH (22:52)
[2020-10-16] MEDS ORDERED: chlordiazePOXIDE HCL 10 MG CAPSULE PO PRN
[2020-10-16] MEDS: chlordiazePOXIDE HCL 10 MG CAPSULE PO SCH ×2 (06:26→10:24)
[2020-10-16 09:01] VITALS: BP 106/64; PULSE 82; TEMP 98.3
[2020-10-16] MEDS: LIDOCAINE 5% TOPICAL PATCH TP SCH (10:23)
[2020-10-16] MEDS: NICOTINE 14 MG/24 HOURS TOPICAL PATCH TD SCH (10:23)
[2020-10-16] MEDS: ASPIRIN 81 MG CHEWABLE TABLETS PO SCH (10:23)
[2020-10-16] MEDS: ATORVASTATIN CA 40 MG TABLET (FP) PO SCH (10:23)
[2020-10-16] MEDS: PRENATAL VITAMINS W/ FOLIC ACID TABLET (FP) PO SCH (10:24)
[2020-10-16] MEDS: RIVAROXABAN 20 MG TABLET PO SCH (10:24)
[2020-10-17] MEDS ORDERED: chlordiazePOXIDE HCL 10 MG CAPSULE PO SCH (05:00)
[2020-10-18] MEDS ORDERED: chlordiazePOXIDE HCL 10 MG CAPSULE PO ONE (05:00)
== END 2020-10-16 10:46 | disposition left against medical advice (07) | DRG 770 ==
LOC: YASAS 18:13 → Y3N 10-14 09:57
PROVIDERS: ADMIT Allergy & Immunology; ATTEND Allergy & Immunology
PROC: HZ2ZZZZ Detoxification Services for Substance Abuse Treatment (ICD-10-PCS; principal; 2020-10-14)
DX: F14.10 Cocaine abuse, uncomplicated (principal); F17.210 Nicotine dependence, cigarettes, uncomplicated; F31.9 Bipolar disorder, unspecified; F19.24 Other psychoactive substance dependence with psychoactive substance-induced mood disorder; I24.9 Acute ischemic heart disease, unspecified; I25.10 Atherosclerotic heart disease of native coronary artery without angina pectoris; I11.0 Hypertensive heart disease with heart failure; I50.32 Chronic diastolic (congestive) heart failure; I25.2 Old myocardial infarction; I69.854 Hemiplegia and hemiparesis following other cerebrovascular disease affecting left non-dominant side; E78.5 Hyperlipidemia, unspecified; E10.9 Type 1 diabetes mellitus without complications; G40.509 Epileptic seizures related to external causes, not intractable, without status epilepticus; Z56.0 Unemployment, unspecified; Z59.0 Homelessness; Z91.013 Allergy to seafood; Z91.018 Allergy to other foods; Z99.89 Dependence on other enabling machines and devices
CPT/HCPCS: 36415; 80053; 82962; 85027; 86780; 93005; 93010; C9803; Q0162; U0003

== ENCOUNTER 2020-12-10 19:21 | Inpatient (IN) | payer OTHER ==
[2020-12-10 22:09] VITALS: BMI 23.3
[2020-12-10] MEDS ORDERED: ONDANSETRON *ODT* 4 MG TABLET SL PRN (22:23)
[2020-12-10] MEDS ORDERED: MAG HYDROX/AL HYDROX/SIMETH 30 ML UNIT-DOSE CUP PO PRN (22:23)
[2020-12-10] MEDS ORDERED: MAGNESIUM HYDROX 2400MG/30ML ORAL SUSPENSION 30 ML CUP PO PRN (22:23)
[2020-12-10] MEDS ORDERED: hydrOXYzine PAMOATE 25 MG CAPSULE (FP) PO PRN (22:23)
[2020-12-10] MEDS ORDERED: MAGNESIUM CITRATE 300 ML BOTTLE PO PRN (22:23)
[2020-12-10] MEDS ORDERED: MENTHOL/PHENOL 1 EACH UD MM PRN (22:23)
[2020-12-10] MEDS ORDERED: ACETAMINOPHEN 325 MG TABLET (FP) PO PRN ×2 (22:23)
[2020-12-11] MEDS ORDERED: diazePAM 5 MG TABLET PO PRN (03:45)
[2020-12-11] MEDS ORDERED: diazePAM 5 MG TABLET ONE (04:01)
[2020-12-11] MEDS ORDERED: hydrOXYzine PAMOATE 25 MG CAPSULE (FP) PO ONE (04:01)
[2020-12-11] MEDS: diazePAM 5 MG TABLET PO SCH ×4 (04:02→23:37)
[2020-12-11 12:24] LABS: HEMATOCRIT 32.1 % (35.4-49); HEMOGLOBIN 10.5 GM/dL (11.7-16.9); MCH 25.7 pg (25.7-33.7); MCHC 32.7 g/dl (32.0-35.9); MEAN CELL VOLUME 78.5 fl (80-96); MEAN PLT VOLUME 8.3 fl (7.5-11.1); PLATELET COUNT 242 K/MM3 (134-434); RBC 4.09 M/mm3 (4.00-5.60); RDW 20.5 % (11.9-15.9); WHITE BLOOD COUNT 5.7 K/mm3 (4.0-10.0)
[2020-12-11 12:26] LABS: CALCIUM 8.4 mg/dL (8.5-10.1)
[2020-12-11 12:27] LABS: ALBUMIN 2.9 g/dl (3.4-5.0)
[2020-12-11 12:30] LABS: CREATININE 0.8 mg/dL (0.55-1.3)
[2020-12-11 12:32] LABS: BILIRUBIN,TOTAL 0.6 mg/dL (0.2-1); TOT PROT 6.2 g/dl (6.4-8.2)
[2020-12-11] MEDS: ASPIRIN 81 MG CHEWABLE TABLETS PO SCH (12:52)
[2020-12-11] MEDS: PRENATAL VITAMINS W/ FOLIC ACID TABLET (FP) PO SCH (12:52)
[2020-12-11] MEDS: RIVAROXABAN 20 MG TABLET PO SCH (14:47)
[2020-12-11] MEDS ORDERED: POTASSIUM CHLORIDE ORAL LIQUID 20 MEQ/15 ML PO ONE (15:00)
[2020-12-11] MEDS: MELATONIN 5 MG TABLETS PO SCH (23:36)
[2020-12-11] MEDS: THIAMINE HCL 100 MG TABLET (FP) PO SCH (23:37)
[2020-12-11] MEDS: POTASSIUM CHLORIDE ORAL LIQUID 20 MEQ/15 ML PO SCH (23:37)
[2020-12-12] MEDS: diazePAM 5 MG TABLET PO SCH ×3 (06:26→22:42)
[2020-12-12] MEDS: PRENATAL VITAMINS W/ FOLIC ACID TABLET (FP) PO SCH (12:16)
[2020-12-12] MEDS: ASPIRIN 81 MG CHEWABLE TABLETS PO SCH (12:16)
[2020-12-12] MEDS: POTASSIUM CHLORIDE ORAL LIQUID 20 MEQ/15 ML PO SCH (12:17)
[2020-12-12] MEDS: ATORVASTATIN CA 40 MG TABLET (FP) PO SCH (12:18)
[2020-12-12] MEDS: RIVAROXABAN 20 MG TABLET PO SCH (12:19)
[2020-12-12] MEDS: AMMONIUM LACTATE 12% LOTION 225 GM BOTTLE TP SCH (22:41)
[2020-12-12] MEDS: MELATONIN 5 MG TABLETS PO SCH (22:41)
[2020-12-12] MEDS: THIAMINE HCL 100 MG TABLET (FP) PO SCH (22:42)
[2020-12-13] MEDS: diazePAM 5 MG TABLET PO SCH ×2 (06:17→18:36)
[2020-12-13] MEDS: FERROUS SO4 325 MG TABLET (FP) PO SCH ×2 (07:03→17:58)
[2020-12-13] MEDS: ASPIRIN 81 MG CHEWABLE TABLETS PO SCH (11:10)
[2020-12-13] MEDS: AMMONIUM LACTATE 12% LOTION 225 GM BOTTLE TP SCH ×2 (11:10→23:13)
[2020-12-13] MEDS: ATORVASTATIN CA 40 MG TABLET (FP) PO SCH (11:10)
[2020-12-13] MEDS: PRENATAL VITAMINS W/ FOLIC ACID TABLET (FP) PO SCH (11:11)
[2020-12-13] MEDS: RIVAROXABAN 20 MG TABLET PO SCH (11:11)
[2020-12-13] MEDS: MELATONIN 5 MG TABLETS PO SCH (23:13)
[2020-12-13] MEDS: THIAMINE HCL 100 MG TABLET (FP) PO SCH (23:13)
[2020-12-14] MEDS ORDERED: diazePAM 5 MG TABLET PO ONE (06:00)
[2020-12-14] MEDS: FERROUS SO4 325 MG TABLET (FP) PO SCH (07:10)
[2020-12-14 09:16] VITALS: BP 118/66; PULSE 96; TEMP 98.9
[2020-12-14] MEDS: RIVAROXABAN 20 MG TABLET PO SCH (10:47)
[2020-12-14] MEDS: ATORVASTATIN CA 40 MG TABLET (FP) PO SCH (10:47)
[2020-12-14] MEDS: AMMONIUM LACTATE 12% LOTION 225 GM BOTTLE TP SCH (10:47)
[2020-12-14] MEDS: ASPIRIN 81 MG CHEWABLE TABLETS PO SCH (10:47)
[2020-12-14] MEDS: PRENATAL VITAMINS W/ FOLIC ACID TABLET (FP) PO SCH (10:47)
== END 2020-12-14 11:39 | disposition home or self-care (01) | DRG 774 ==
LOC: YASAS 19:21 → Y6N 12-11 08:51
PROVIDERS: ADMIT Allergy & Immunology; ATTEND Allergy & Immunology
PROC: HZ2ZZZZ Detoxification Services for Substance Abuse Treatment (ICD-10-PCS; principal; 2020-12-11)
DX: F10.230 Alcohol dependence with withdrawal, uncomplicated (principal); F14.20 Cocaine dependence, uncomplicated; F10.220 Alcohol dependence with intoxication, uncomplicated; F17.210 Nicotine dependence, cigarettes, uncomplicated; F31.9 Bipolar disorder, unspecified; I25.10 Atherosclerotic heart disease of native coronary artery without angina pectoris; I10 Essential (primary) hypertension; E78.5 Hyperlipidemia, unspecified; D64.9 Anemia, unspecified; Z86.718 Personal history of other venous thrombosis and embolism; I69.854 Hemiplegia and hemiparesis following other cerebrovascular disease affecting left non-dominant side; Z99.89 Dependence on other enabling machines and devices; Z91.018 Allergy to other foods
CPT/HCPCS: 36415; 80053; 82947; 84132; 85027; 86780; C9803; U0003; U0005

== ENCOUNTER 2021-01-15 19:32 | Inpatient (IN) | payer OTHER ==
[2021-01-15 21:28] VITALS: BMI 22.7
[2021-01-16] MEDS ORDERED: MENTHOL/PHENOL 1 EACH UD MM PRN (01:57)
[2021-01-16] MEDS ORDERED: chlordiazePOXIDE HCL 25 MG CAPSULE PO PRN (01:57)
[2021-01-16] MEDS ORDERED: MAGNESIUM CITRATE 300 ML BOTTLE PO PRN (01:57)
[2021-01-16] MEDS ORDERED: BISMUTH SUBSALICYLATE 524 MG/30 ML PO PRN (01:57)
[2021-01-16] MEDS ORDERED: MAGNESIUM HYDROX 2400MG/30ML ORAL SUSPENSION 30 ML CUP PO PRN (01:57)
[2021-01-16] MEDS ORDERED: ONDANSETRON *ODT* 4 MG TABLET SL PRN (01:57)
[2021-01-16] MEDS ORDERED: ACETAMINOPHEN 325 MG TABLET (FP) PO PRN (01:57)
[2021-01-16] MEDS ORDERED: MAG HYDROX/AL HYDROX/SIMETH 30 ML UNIT-DOSE CUP PO PRN (01:57)
[2021-01-16] MEDS ORDERED: NICOTINE POLACRILEX 2 MG GUM BUC PRN (01:57)
[2021-01-16] MEDS: ACETAMINOPHEN 325 MG TABLET (FP) PO PRN (02:56)
[2021-01-16] MEDS: hydrOXYzine PAMOATE 25 MG CAPSULE (FP) PO SCH ×5 (07:55→22:32)
[2021-01-16] MEDS: chlordiazePOXIDE HCL 25 MG CAPSULE PO SCH ×3 (07:55→18:00)
[2021-01-16] MEDS: METHOCARBAMOL 500 MG TABLET PO PRN ×2 (11:40→18:00)
[2021-01-16] MEDS: PRENATAL VITAMINS W/ FOLIC ACID TABLET (FP) PO SCH (11:40)
[2021-01-16] MEDS: ASPIRIN 81 MG CHEWABLE TABLETS PO SCH (11:43)
[2021-01-16] MEDS: IBUPROFEN 400 MG TABLET (FP) PO PRN ×2 (11:47→18:00)
[2021-01-16 12:38] LABS: HEMATOCRIT 33.6 % (35.4-49); HEMOGLOBIN 11.1 GM/dL (11.7-16.9); MCH 26.5 pg (25.7-33.7); MEAN CELL VOLUME 80.3 fl (80-96); MEAN PLT VOLUME 8.2 fl (7.5-11.1); PLATELET COUNT 267 K/MM3 (134-434); RBC 4.18 M/mm3 (4.00-5.60); RDW 20.5 % (11.9-15.9); WHITE BLOOD COUNT 5.2 K/mm3 (4.0-10.0)
[2021-01-16 12:56] LABS: ALBUMIN 3.4 g/dl (3.4-5.0); BLOOD UREA NITROGEN 13.3 mg/dL (7-18); CALCIUM 8.8 mg/dL (8.5-10.1)
[2021-01-16 12:59] LABS: CREATININE 0.8 mg/dL (0.55-1.3)
[2021-01-16 13:01] LABS: TOT PROT 7.3 g/dl (6.4-8.2)
[2021-01-16 13:04] LABS: BILIRUBIN,TOTAL 0.5 mg/dL (0.2-1)
[2021-01-16] MEDS ORDERED: LORazepam 1 MG TABLET PO PRN (19:18)
[2021-01-16] MEDS: MELATONIN 5 MG TABLETS PO SCH (22:32)
[2021-01-16] MEDS: ATORVASTATIN CA 40 MG TABLET (FP) PO SCH (22:32)
[2021-01-16] MEDS: LORazepam 2 MG TABLET PO SCH (22:32)
[2021-01-16] MEDS: THIAMINE HCL 100 MG TABLET (FP) PO SCH (22:32)
[2021-01-16] MEDS: RIVAROXABAN 20 MG TABLET PO SCH (22:40)
[2021-01-17] MEDS ORDERED: chlordiazePOXIDE HCL 25 MG CAPSULE PO SCH (05:00)
[2021-01-17] MEDS: hydrOXYzine PAMOATE 25 MG CAPSULE (FP) PO SCH ×5 (07:00→23:26)
[2021-01-17] MEDS: LORazepam 2 MG TABLET PO SCH ×4 (07:00→23:22)
[2021-01-17] MEDS: IBUPROFEN 400 MG TABLET (FP) PO PRN (10:40)
[2021-01-17] MEDS: METHOCARBAMOL 500 MG TABLET PO PRN (10:40)
[2021-01-17] MEDS: PRENATAL VITAMINS W/ FOLIC ACID TABLET (FP) PO SCH (10:40)
[2021-01-17] MEDS: ASPIRIN 81 MG CHEWABLE TABLETS PO SCH (10:40)
[2021-01-17] MEDS: RIVAROXABAN 20 MG TABLET PO SCH (18:49)
[2021-01-17] MEDS ORDERED: INSULIN (NOVOLOG) ASPART 100 UNITS/ML 10ML VIAL ONE (22:09)
[2021-01-17] MEDS: THIAMINE HCL 100 MG TABLET (FP) PO SCH (23:22)
[2021-01-17] MEDS: MELATONIN 5 MG TABLETS PO SCH (23:22)
[2021-01-17] MEDS: ATORVASTATIN CA 40 MG TABLET (FP) PO SCH (23:22)
[2021-01-18] MEDS ORDERED: chlordiazePOXIDE HCL 10 MG CAPSULE PO PRN
[2021-01-18] MEDS ORDERED: chlordiazePOXIDE HCL 10 MG CAPSULE PO SCH (05:00)
[2021-01-18] MEDS: hydrOXYzine PAMOATE 25 MG CAPSULE (FP) PO SCH ×4 (06:35→20:54)
[2021-01-18] MEDS: LORazepam 1 MG TABLET PO SCH ×3 (06:35→20:54)
[2021-01-18] MEDS: PRENATAL VITAMINS W/ FOLIC ACID TABLET (FP) PO SCH (11:34)
[2021-01-18] MEDS: ASPIRIN 81 MG CHEWABLE TABLETS PO SCH (11:34)
[2021-01-18] MEDS: RIVAROXABAN 20 MG TABLET PO SCH (20:54)
[2021-01-19] MEDS ORDERED: LORazepam 0.5 MG TABLET PO PRN
[2021-01-19] MEDS: ATORVASTATIN CA 40 MG TABLET (FP) PO SCH (00:13)
[2021-01-19] MEDS: LORazepam 1 MG TABLET PO SCH (00:14)
[2021-01-19] MEDS: THIAMINE HCL 100 MG TABLET (FP) PO SCH (00:14)
[2021-01-19] MEDS: MELATONIN 5 MG TABLETS PO SCH (00:14)
[2021-01-19] MEDS: hydrOXYzine PAMOATE 25 MG CAPSULE (FP) PO SCH ×2 (00:14→06:32)
[2021-01-19 00:49] VITALS: BP 144/75; PULSE 82; TEMP 98.2
[2021-01-19] MEDS: ACETAMINOPHEN 325 MG TABLET (FP) PO PRN (01:01)
[2021-01-19] MEDS ORDERED: chlordiazePOXIDE HCL 10 MG CAPSULE PO SCH (05:00)
[2021-01-19] MEDS ORDERED: LORazepam 0.5 MG TABLET PO SCH (05:00)
[2021-01-20] MEDS ORDERED: chlordiazePOXIDE HCL 10 MG CAPSULE PO ONE (05:00)
[2021-01-20] MEDS ORDERED: LORazepam 0.5 MG TABLET PO ONE (05:00)
== END 2021-01-19 10:14 | disposition home or self-care (01) | DRG 774 ==
LOC: YASAS 19:32 → Y6N 01-16 01:06
PROVIDERS: ADMIT Allergy & Immunology; ATTEND Allergy & Immunology
PROC: HZ2ZZZZ Detoxification Services for Substance Abuse Treatment (ICD-10-PCS; principal; 2021-01-16)
DX: F10.230 Alcohol dependence with withdrawal, uncomplicated (principal); F14.20 Cocaine dependence, uncomplicated; F17.213 Nicotine dependence, cigarettes, with withdrawal; F19.24 Other psychoactive substance dependence with psychoactive substance-induced mood disorder; E78.5 Hyperlipidemia, unspecified; E11.9 Type 2 diabetes mellitus without complications; I10 Essential (primary) hypertension; Z09 Encounter for follow-up examination after completed treatment for conditions other than malignant neoplasm; Z86.718 Personal history of other venous thrombosis and embolism; Z79.01 Long term (current) use of anticoagulants; I69.854 Hemiplegia and hemiparesis following other cerebrovascular disease affecting left non-dominant side; Z99.89 Dependence on other enabling machines and devices; Z91.018 Allergy to other foods
CPT/HCPCS: 36415; 80053; 82962; 85027; 86780; C9803; U0003; U0005

== ENCOUNTER 2021-08-24 14:44 | Inpatient (IN) | payer OTHER ==
[2021-08-24 17:26] VITALS: BMI 22.8
[2021-08-24] MEDS ORDERED: MENTHOL/PHENOL 1 EACH UD MM PRN (18:15)
[2021-08-24] MEDS ORDERED: hydrOXYzine PAMOATE 25 MG CAPSULE (FP) PO PRN (18:15)
[2021-08-24] MEDS ORDERED: BISMUTH SUBSALICYLATE 524 MG/30 ML PO PRN (18:15)
[2021-08-24] MEDS ORDERED: ONDANSETRON *ODT* 4 MG TABLET SL PRN (18:15)
[2021-08-24] MEDS ORDERED: MAGNESIUM HYDROX 2400MG/30ML ORAL SUSPENSION 30 ML CUP PO PRN (18:15)
[2021-08-24] MEDS ORDERED: DICYCLOMINE HCL 10 MG CAPSULE PO PRN (18:15)
[2021-08-24] MEDS ORDERED: ACETAMINOPHEN 325 MG TABLET (FP) PO PRN (18:15)
[2021-08-24] MEDS ORDERED: MAGNESIUM CITRATE 300 ML BOTTLE PO PRN (18:15)
[2021-08-24] MEDS ORDERED: chlordiazePOXIDE HCL 25 MG CAPSULE PO PRN (18:21)
[2021-08-24] MEDS ORDERED: AMMONIUM LACTATE 12% LOTION 225 GM BOTTLE TP PRN (18:22)
[2021-08-24] MEDS: ASPIRIN 81 MG CHEWABLE TABLETS PO SCH (18:53)
[2021-08-24] MEDS ORDERED: chlordiazePOXIDE HCL 25 MG CAPSULE PO ONE (19:00)
[2021-08-24] MEDS: IBUPROFEN 400 MG TABLET (FP) PO PRN (20:00)
[2021-08-24] MEDS: THIAMINE HCL 100 MG TABLET (FP) PO SCH (22:02)
[2021-08-24] MEDS: ATORVASTATIN CA 40 MG TABLET (FP) PO SCH (22:02)
[2021-08-24] MEDS: BACITRACIN 0.9 GM PACKET TP SCH (22:02)
[2021-08-24] MEDS: MELATONIN 5 MG TABLETS PO SCH (22:02)
[2021-08-24] MEDS: chlordiazePOXIDE HCL 25 MG CAPSULE PO SCH (22:03)
[2021-08-25] MEDS: chlordiazePOXIDE HCL 25 MG CAPSULE PO SCH ×4 (05:38→22:31)
[2021-08-25] MEDS: MAG HYDROX/AL HYDROX/SIMETH 30 ML UNIT-DOSE CUP PO PRN (05:39)
[2021-08-25] MEDS: IBUPROFEN 400 MG TABLET (FP) PO PRN ×3 (05:39→21:17)
[2021-08-25 10:48] LABS: BLOOD UREA NITROGEN 8.1 mg/dL (7-18)
[2021-08-25 10:51] LABS: ALBUMIN 2.5 g/dl (3.4-5.0); CALCIUM 8.6 mg/dL (8.5-10.1)
[2021-08-25 10:54] LABS: BILIRUBIN,TOTAL 0.5 mg/dL (0.2-1); CREATININE 0.8 mg/dL (0.55-1.3); TOT PROT 6.1 g/dl (6.4-8.2)
[2021-08-25 10:55] LABS: HEMATOCRIT 29.9 % (35.4-49); HEMOGLOBIN 9.7 GM/dL (11.7-16.9); MCH 26.2 pg (25.7-33.7); MCHC 32.6 g/dl (32.0-35.9); MEAN CELL VOLUME 80.3 fl (80-96); MEAN PLT VOLUME 7.5 fl (7.5-11.1); PLATELET COUNT 282 10^3/uL (134-434); RBC 3.72 M/mm3 (4.00-5.60); RDW 20.4 % (11.9-15.9)
[2021-08-25] MEDS: ACETAMINOPHEN 325 MG TABLET (FP) PO PRN ×2 (11:36→18:46)
[2021-08-25] MEDS: PRENATAL VITAMINS W/ FOLIC ACID TABLET (FP) PO SCH (11:37)
[2021-08-25] MEDS: ASPIRIN 81 MG CHEWABLE TABLETS PO SCH (11:37)
[2021-08-25] MEDS: BACITRACIN 0.9 GM PACKET TP SCH ×2 (11:37→22:33)
[2021-08-25] MEDS: METHOCARBAMOL 500 MG TABLET PO PRN (12:40)
[2021-08-25] MEDS: POTASSIUM CHLORIDE ORAL LIQUID 20 MEQ/15 ML PO SCH ×2 (12:48→22:32)
[2021-08-25] MEDS: DIVALPROEX SODIUM 500 MG TABLET E.C. PO SCH (22:32)
[2021-08-25] MEDS: THIAMINE HCL 100 MG TABLET (FP) PO SCH (22:32)
[2021-08-25] MEDS: QUEtiapine FUMARATE 100 MG TABLET (FP) PO SCH (22:32)
[2021-08-25] MEDS: MELATONIN 5 MG TABLETS PO SCH (22:32)
[2021-08-25] MEDS: ATORVASTATIN CA 40 MG TABLET (FP) PO SCH (22:32)
[2021-08-26] MEDS: MAG HYDROX/AL HYDROX/SIMETH 30 ML UNIT-DOSE CUP PO PRN (00:24)
[2021-08-26] MEDS: chlordiazePOXIDE HCL 25 MG CAPSULE PO SCH ×4 (06:02→23:10)
[2021-08-26 11:00] LABS: HEMATOCRIT 31.4 % (35.4-49); HEMOGLOBIN 10.1 GM/dL (11.7-16.9); MCH 26.1 pg (25.7-33.7); MCHC 32.2 g/dl (32.0-35.9); MEAN CELL VOLUME 81.1 fl (80-96); MEAN PLT VOLUME 7.6 fl (7.5-11.1); PLATELET COUNT 298 10^3/uL (134-434); RBC 3.87 M/mm3 (4.00-5.60); RDW 20.5 % (11.9-15.9); RETICULOCYTES 1.88 % (0.5-1.5)
[2021-08-26] MEDS: POTASSIUM CHLORIDE ORAL LIQUID 20 MEQ/15 ML PO SCH (11:07)
[2021-08-26] MEDS: FERROUS SO4 325 MG TABLET (FP) PO SCH ×2 (11:07→23:10)
[2021-08-26] MEDS: DIVALPROEX SODIUM 500 MG TABLET E.C. PO SCH ×2 (11:07→23:09)
[2021-08-26] MEDS: BACITRACIN 0.9 GM PACKET TP SCH ×2 (11:07→23:08)
[2021-08-26] MEDS: PRENATAL VITAMINS W/ FOLIC ACID TABLET (FP) PO SCH (11:07)
[2021-08-26] MEDS: ASPIRIN 81 MG CHEWABLE TABLETS PO SCH (11:07)
[2021-08-26] MEDS: METHOCARBAMOL 500 MG TABLET PO PRN (17:59)
[2021-08-26] MEDS: ACETAMINOPHEN 325 MG TABLET (FP) PO PRN (17:59)
[2021-08-26] MEDS: IBUPROFEN 400 MG TABLET (FP) PO PRN (23:08)
[2021-08-26] MEDS: THIAMINE HCL 100 MG TABLET (FP) PO SCH (23:10)
[2021-08-26] MEDS: MELATONIN 5 MG TABLETS PO SCH (23:10)
[2021-08-26] MEDS: ATORVASTATIN CA 40 MG TABLET (FP) PO SCH (23:10)
[2021-08-26] MEDS: QUEtiapine FUMARATE 100 MG TABLET (FP) PO SCH (23:10)
[2021-08-27] MEDS ORDERED: chlordiazePOXIDE HCL 10 MG CAPSULE PO PRN
[2021-08-27] MEDS ORDERED: chlordiazePOXIDE HCL 10 MG CAPSULE PO SCH (05:00)
[2021-08-27 06:54] VITALS: BP 118/71; PULSE 90; TEMP 97.3
[2021-08-28] MEDS ORDERED: chlordiazePOXIDE HCL 10 MG CAPSULE PO SCH (05:00)
[2021-08-29] MEDS ORDERED: chlordiazePOXIDE HCL 10 MG CAPSULE PO ONE (05:00)
== END 2021-08-27 11:39 | disposition left against medical advice (07) | DRG 770 ==
LOC: YASAS 14:44 → Y3N 18:07
PROVIDERS: ADMIT Allergy & Immunology; ATTEND Allergy & Immunology
PROC: HZ2ZZZZ Detoxification Services for Substance Abuse Treatment (ICD-10-PCS; principal; 2021-08-24)
DX: F10.230 Alcohol dependence with withdrawal, uncomplicated (principal); F14.20 Cocaine dependence, uncomplicated; F12.20 Cannabis dependence, uncomplicated; F17.210 Nicotine dependence, cigarettes, uncomplicated; F19.24 Other psychoactive substance dependence with psychoactive substance-induced mood disorder; F31.9 Bipolar disorder, unspecified; D64.9 Anemia, unspecified; E78.1 Pure hyperglyceridemia; G47.00 Insomnia, unspecified; I25.10 Atherosclerotic heart disease of native coronary artery without angina pectoris; I10 Essential (primary) hypertension; I69.854 Hemiplegia and hemiparesis following other cerebrovascular disease affecting left non-dominant side; I25.2 Old myocardial infarction; Z86.718 Personal history of other venous thrombosis and embolism; Z86.711 Personal history of pulmonary embolism; Z87.81 Personal history of (healed) traumatic fracture; Z99.89 Dependence on other enabling machines and devices; Z59.00 Homelessness unspecified; Z91.013 Allergy to seafood; Z91.018 Allergy to other foods
CPT/HCPCS: 36415; 73610-TC-LT-FY; 80053; 80164; 82607; 82746; 83540; 83550; 84132; 85027; 85045; 86780; C9803; U0003; U0005

== ENCOUNTER 2021-11-02 14:27 | Inpatient (IN) | payer OTHER ==
[2021-11-02 15:19] VITALS: BMI 23.1
[2021-11-02] MEDS ORDERED: NICOTINE POLACRILEX 2 MG GUM BUC PRN (17:09)
[2021-11-02] MEDS ORDERED: BISMUTH SUBSALICYLATE 524 MG/30 ML PO PRN (17:09)
[2021-11-02] MEDS ORDERED: MAGNESIUM HYDROX 2400MG/30ML ORAL SUSPENSION 30 ML CUP PO PRN (17:09)
[2021-11-02] MEDS ORDERED: LOPERAMIDE HCL 2 MG CAPSULE PO PRN (17:09)
[2021-11-02] MEDS ORDERED: METHOCARBAMOL 500 MG TABLET PO PRN (17:09)
[2021-11-02] MEDS ORDERED: MENTHOL/PHENOL 1 EACH UD MM PRN (17:09)
[2021-11-02] MEDS ORDERED: MELATONIN 5 MG TABLETS PO PRN (17:09)
[2021-11-02] MEDS ORDERED: MAGNESIUM CITRATE 300 ML BOTTLE PO PRN (17:09)
[2021-11-02] MEDS ORDERED: ONDANSETRON *ODT* 4 MG TABLET SL PRN (17:09)
[2021-11-02] MEDS ORDERED: IBUPROFEN 400 MG TABLET (FP) PO PRN (17:09)
[2021-11-02] MEDS ORDERED: ACETAMINOPHEN 325 MG TABLET (FP) PO PRN ×2 (17:09)
[2021-11-02] MEDS ORDERED: chlordiazePOXIDE HCL 25 MG CAPSULE PO PRN (17:12)
[2021-11-02] MEDS: ASPIRIN 81 MG CHEWABLE TABLETS PO SCH (18:58)
[2021-11-02] MEDS: hydrOXYzine PAMOATE 25 MG CAPSULE (FP) PO SCH ×2 (18:58→23:04)
[2021-11-02] MEDS: chlordiazePOXIDE HCL 25 MG CAPSULE PO SCH ×2 (18:58→23:03)
[2021-11-02] MEDS: THIAMINE HCL 100 MG TABLET (FP) PO SCH (23:04)
[2021-11-02] MEDS: ATORVASTATIN CA 40 MG TABLET (FP) PO SCH (23:04)
[2021-11-03] MEDS: chlordiazePOXIDE HCL 25 MG CAPSULE PO SCH ×2 (06:09→10:34)
[2021-11-03] MEDS: hydrOXYzine PAMOATE 25 MG CAPSULE (FP) PO SCH ×5 (06:10→23:13)
[2021-11-03] MEDS: ASPIRIN 81 MG CHEWABLE TABLETS PO SCH (10:34)
[2021-11-03] MEDS: PRENATAL VITAMINS W/ FOLIC ACID TABLET (FP) PO SCH (10:34)
[2021-11-03 10:56] LABS: HEMATOCRIT 34.6 % (35.4-49); HEMOGLOBIN 11.4 GM/dL (11.7-16.9); MCH 25.1 pg (25.7-33.7); MCHC 32.9 g/dl (32.0-35.9); MEAN CELL VOLUME 76.2 fl (80-96); MEAN PLT VOLUME 7.9 fl (7.5-11.1); PLATELET COUNT 223 10^3/uL (134-434); RBC 4.54 M/mm3 (4.00-5.60); RDW 18.1 % (11.9-15.9)
[2021-11-03 11:16] LABS: BLOOD UREA NITROGEN 9.3 mg/dL (7-18); CALCIUM 8.7 mg/dL (8.5-10.1)
[2021-11-03 11:18] LABS: CREATININE 0.9 mg/dL (0.55-1.3)
[2021-11-03 11:19] LABS: BILIRUBIN,TOTAL 1.1 mg/dL (0.2-1)
[2021-11-03 11:20] LABS: TOT PROT 6.9 g/dl (6.4-8.2)
[2021-11-03] MEDS ORDERED: LORazepam 1 MG TABLET PO PRN (11:49)
[2021-11-03] MEDS: MAG HYDROX/AL HYDROX/SIMETH 30 ML UNIT-DOSE CUP PO PRN (12:28)
[2021-11-03] MEDS ORDERED: RIVAROXABAN 20 MG TABLET PO SCH (18:00)
[2021-11-03] MEDS: LORazepam 2 MG TABLET PO SCH ×2 (18:42→23:13)
[2021-11-03] MEDS: ATORVASTATIN CA 40 MG TABLET (FP) PO SCH (23:14)
[2021-11-03] MEDS: THIAMINE HCL 100 MG TABLET (FP) PO SCH (23:15)
[2021-11-04] MEDS ORDERED: chlordiazePOXIDE HCL 25 MG CAPSULE PO SCH (05:00)
[2021-11-04] MEDS: LORazepam 2 MG TABLET PO SCH ×4 (07:57→22:59)
[2021-11-04] MEDS: hydrOXYzine PAMOATE 25 MG CAPSULE (FP) PO SCH ×5 (08:00→22:59)
[2021-11-04] MEDS: ASPIRIN 81 MG CHEWABLE TABLETS PO SCH (10:16)
[2021-11-04] MEDS: FERROUS SO4 325 MG TABLET (FP) PO SCH ×2 (10:16→22:59)
[2021-11-04] MEDS: POTASSIUM CHLORIDE TABS 20 MEQ TABLET.ER (FP) PO SCH (10:16)
[2021-11-04] MEDS: CYANOCOBALAMIN 1,000 MCG TABLET (FP) PO SCH (10:17)
[2021-11-04] MEDS: PRENATAL VITAMINS W/ FOLIC ACID TABLET (FP) PO SCH (10:17)
[2021-11-04 14:08] LABS: SARS-CoV-2 NAA Not Detected (Not Detected)
[2021-11-04] MEDS: ATORVASTATIN CA 40 MG TABLET (FP) PO SCH (22:59)
[2021-11-04] MEDS: THIAMINE HCL 100 MG TABLET (FP) PO SCH (22:59)
[2021-11-05] MEDS ORDERED: chlordiazePOXIDE HCL 10 MG CAPSULE PO PRN
[2021-11-05] MEDS: MAG HYDROX/AL HYDROX/SIMETH 30 ML UNIT-DOSE CUP PO PRN (04:40)
[2021-11-05] MEDS ORDERED: chlordiazePOXIDE HCL 10 MG CAPSULE PO SCH (05:00)
[2021-11-05] MEDS: LORazepam 1 MG TABLET PO SCH ×2 (07:11→10:37)
[2021-11-05] MEDS: hydrOXYzine PAMOATE 25 MG CAPSULE (FP) PO SCH ×2 (07:12→10:37)
[2021-11-05 09:22] VITALS: BP 117/70; PULSE 87; TEMP 97.2
[2021-11-05] MEDS: FERROUS SO4 325 MG TABLET (FP) PO SCH (10:37)
[2021-11-05] MEDS: CYANOCOBALAMIN 1,000 MCG TABLET (FP) PO SCH (10:37)
[2021-11-05] MEDS: ASPIRIN 81 MG CHEWABLE TABLETS PO SCH (10:37)
[2021-11-05] MEDS: PRENATAL VITAMINS W/ FOLIC ACID TABLET (FP) PO SCH (10:37)
[2021-11-05] MEDS: POTASSIUM CHLORIDE TABS 20 MEQ TABLET.ER (FP) PO SCH (10:37)
[2021-11-06] MEDS ORDERED: LORazepam 0.5 MG TABLET PO PRN
[2021-11-06] MEDS ORDERED: LORazepam 0.5 MG TABLET PO SCH (05:00)
[2021-11-06] MEDS ORDERED: chlordiazePOXIDE HCL 10 MG CAPSULE PO SCH (05:00)
[2021-11-07] MEDS ORDERED: chlordiazePOXIDE HCL 10 MG CAPSULE PO ONE (05:00)
[2021-11-07] MEDS ORDERED: LORazepam 0.5 MG TABLET PO ONE (05:00)
== END 2021-11-05 09:40 | disposition left against medical advice (07) | DRG 770 ==
LOC: YASAS 14:27 → Y3N 18:40
PROVIDERS: ADMIT Allergy & Immunology; ATTEND Allergy & Immunology
PROC: HZ2ZZZZ Detoxification Services for Substance Abuse Treatment (ICD-10-PCS; principal; 2021-11-02)
DX: F10.230 Alcohol dependence with withdrawal, uncomplicated (principal); F14.20 Cocaine dependence, uncomplicated; F13.20 Sedative, hypnotic or anxiolytic dependence, uncomplicated; F17.210 Nicotine dependence, cigarettes, uncomplicated; D64.9 Anemia, unspecified; R79.89 Other specified abnormal findings of blood chemistry; R74.8 Abnormal levels of other serum enzymes; I69.854 Hemiplegia and hemiparesis following other cerebrovascular disease affecting left non-dominant side; Z86.718 Personal history of other venous thrombosis and embolism; Z99.89 Dependence on other enabling machines and devices; Z91.013 Allergy to seafood; Z91.018 Allergy to other foods
CPT/HCPCS: 36415; 80053; 80164; 85027; 86780; C9803; U0003; U0005